=== PATIENT | female | born 1975 | race Caucasian/White ===

== ENCOUNTER 2017-07-05 16:23 | Emergency (ER) | payer MEDICARE, MEDICAID ==
[2017-07-05 16:38] VITALS: BP 152/93
[2017-07-05] MEDS ORDERED: Ondansetron 4 MG/2 ML SDV IVPUSH ONE (16:50)
[2017-07-05] MEDS ORDERED: diphenhydrAMINE 50 MG/ML SDV IVPUSH ONE (16:50)
[2017-07-05] MEDS ORDERED: Sodium Chloride 0.9% 10 ML Syringe FLUSH PRN (16:50)
[2017-07-05] MEDS ORDERED: Sodium Chloride 0.9% 1,000 ML IV SCH (17:00)
[2017-07-05] MEDS ORDERED: Ketorolac 30 MG/ML SDV IVPUSH SCH (17:00)
[2017-07-05] MEDS ORDERED: Acetaminophen 325 MG Tab PO STA (18:41)
--- NOTE | 2017-07-05 18:54 | EDM.PDOC ---
ED HPI GENERAL MEDICAL PROBLEM - General Chief Complaint: Headache Stated Complaint: MIGRAIN,THROWING UP Time Seen by Provider: 07/05/17 16:33 Source of Information: Reports: Patient, RN Notes Reviewed - History of Present Illness INITIAL COMMENTS - FREE TEXT/NARRATIVE: 32 year old female with onset of migraine type Walsh last evening, continues to day. Not able get reasonable relief with meds taken at home. Has had some nausea, vomiting, no fever, chills, cough or sore throat. hx of occas. Walsh's. Frontal Headache Pain Score (Numeric/FACES): 9 - Related Data Allergies Allergy/AdvReac Type Severity Reaction Status Date / Time meperidine Allergy Other Verified 07/05/17 16:38 metoclopramide Allergy Other Verified 07/05/17 16:38 Phenothiazines Allergy Other Verified 07/05/17 16:38 prochlorperazine Allergy Other Verified 07/05/17 16:38 Home Meds: Home Meds . 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 Denies: Abdominal Pain, Diarrhea Musculoskeletal: Denies: Neck Pain, Back Pain Neurological: Reports: Headache. Denies: Numbness, Tingling, Trouble Speaking, Difficulty Walking, Weakness ED EXAM, HEAD INJURY - Physical Exam Exam: See Below General Appearance: Alert, Mild Distress Head: Atraumatic. No: Facial Swelling Eyes: Bilateral Eye: PERRL Nose: Normal Inspection Throat/Mouth: Normal Inspection, Normal Oropharynx Neck: Full Range of Motion Respiratory: No Respiratory Distress, Lungs Clear, Normal Breath Sounds Cardiovascular: Regular Rate, Rhythm GI/Abdominal Exam: Non-Tender Extremities: Normal Inspection, Normal Range of Motion Neurologic: No Motor/Sensory Deficits, Normal Mood/Affect, Oriented x 3 Skin: Normal Color, Warm/Dry Course - Vital Signs Last Recorded V/S: Last Vital Signs Temp 96.2 F 07/05/17 16:31 Pulse 95 07/05/17 16:31 Resp 16 07/05/17 16:31 BP 152/93 H 07/05/17 16:31 Pulse Ox 96 07/05/17 16:31 - Orders/Labs/Meds Meds: Medications Discontinued Medications Generic Name Dose Route Start Last Admin Trade Name Gerri PRN Reason Stop Dose Admin Acetaminophen 975 mg 07/05/17 18:41 07/05/17 18:45 Tylenol PO 07/05/17 18:42 975 mg NOW STA Administration Diphenhydramine HCl 25 mg 07/05/17 16:50 07/05/17 17:09 Benadryl IVPUSH 07/05/17 16:51 25 mg ONETIME ONE Administration Sodium Chloride 1,000 mls @ 999 mls/hr 07/05/17 17:00 07/05/17 17:06 Normal Saline IV 999 mls/hr ONETIME RACHELL Administration Ketorolac Tromethamine 30 mg 07/05/17 17:00 07/05/17 17:07 Toradol IVPUSH 30 mg ONETIME RACHELL Administration Ondansetron HCl 4 mg 07/05/17 16:50 07/05/17 17:06 Zofran IVPUSH 07/05/17 16:51 4 mg ONETIME ONE Administration Sodium Chloride 10 ml 07/05/17 16:50 07/05/17 17:09 Saline Flush FLUSH 10 ml ASDIRECTED PRN Administration Keep Vein Open - Re-Assessments/Exams Free Text/Narrative Re-Assessment/Exam: 07/09/17 10:57 felt better after mult. meds given. Departure - Departure Time of Disposition: 18:52 Disposition: Home, Self-Care 01 Condition: Fair Clinical Impression: Migraine - Discharge Information Instructions: Migraine Headache, [id number] Referrals: Jareth Ewing MD [Primary Care Provider] - Forms: ED Department Discharge Additional Instructions: rest, clear liquids and bland diet as tolerated, you may take tylenol q 6 to 8 hr if needed for further Walsh, follow up clinic if Walsh not resolving as expected, return to ED if symptoms worsening in any way.
== END 2017-07-05 19:00 | disposition home or self-care (01) ==
LOC: JD.ED 16:23
DX: G43.909 Migraine, unspecified, not intractable, without status migrainosus (principal); Z88.8 Allergy status to other drugs, medicaments and biological substances
CPT/HCPCS: 96361; 96374; 96375; 99284; A9270; J1200; J1885; J2405; J7040; J7050

== ENCOUNTER 2017-08-09 18:02 | Emergency (ER) | payer MEDICARE, MEDICAID ==
[2017-08-09 18:18] VITALS: BP 151/91
[2017-08-09] MEDS ORDERED: Cyclobenzaprine 10 MG Tab PO ONE (19:28)
--- NOTE | 2017-08-09 19:34 | EDM.PDOC ---
ED HPI GENERAL MEDICAL PROBLEM - General Chief Complaint: Back Pain or Injury Stated Complaint: R SIDE RIB PAIN Time Seen by Provider: 08/09/17 18:50 Source of Information: Reports: Patient History Limitations: Reports: No Limitations - History of Present Illness INITIAL COMMENTS - FREE TEXT/NARRATIVE: Patient is a 41-year-old female who presents to the ED complaining of right lower back pain. Patient states yesterday she slipped in the ice and landed on her knees. Later that evening developed some discomfort to the right lower back. States the pain is constant and waxes and wanes in intensity. At times is sharp in nature. Pain is worsened with laying on the affected side decreased with sitting up and not laying on the affected side. She had taken some Tylenol with some relief. There is no numbness and tingling to extremities. She denies any saddle anesthesia. No incontinence to urine or stool. She has not been utilizing any ice or ibuprofen. She has no prior history of herniated disc or back surgeries. She denies being . She denies any abdominal pain, dysuria, blood in her urine, history kidney stones, or any additional complaints. 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 Worse with palpation and movement.), Muscle Pain, Muscle Stiffness. Denies: Leg Pain Neurological: Reports: No Symptoms ED EXAM,LOWER BACK PAIN/INJURY - Physical Exam Exam: See Below Exam Limited By: No Limitations General Appearance: Alert, WD/WN, No Apparent Distress Ears: Hearing Grossly Normal Nose: Normal Inspection Throat/Mouth: Normal Voice, No Airway Compromise Neck: Normal Inspection, Supple Respiratory/Chest: No Respiratory Distress, Lungs Clear, Normal Breath Sounds, No Accessory Muscle Use Cardiovascular: Normal Peripheral Pulses, Regular Rate, Rhythm GI/Abdominal: Normal Bowel Sounds, Soft, Non-Tender, No Organomegaly, No Distention Back Exam: Normal Inspection, Full Range of Motion, Other (Mild discomfort noted to the right low back with palpation. No ecchymosis, swelling, or wounds present. Minimal discomfort on palpation.). No: Paraspinal Tenderness, Vertebral Tenderness Neurological: Alert, Normal Mood/Affect, Normal Dorsiflexion, CN II-XII Intact, Normal Plantar Flexion, Normal Gait, No Motor/Sensory Deficits, Oriented x 3. No: Straight Leg Raise (L), Straight Leg Raise (R), Saddle Anesthesia, Difficulty Walking Psychiatric: Normal Affect, Normal Mood Skin Exam: Warm, Dry, Intact, Normal Color, No Rash Course - Vital Signs Last Recorded V/S: Last Vital Signs Temp 98.1 F 08/09/17 18:14 Pulse 98 08/09/17 18:14 Resp 16 08/09/17 18:14 BP 151/91 H 08/09/17 18:14 Pulse Ox 100 08/09/17 18:14 - Orders/Labs/Meds Meds: Medications Discontinued Medications Generic Name Dose Route Start Last Admin Trade Name Jermaineq PRN Reason Stop Dose Admin Cyclobenzaprine HCl 10 mg 08/09/17 19:28 08/09/17 19:34 Flexeril PO 08/09/17 19:29 10 mg ONETIME ONE Administration - Re-Assessments/Exams Free Text/Narrative Re-Assessment/Exam: On examination patient has some mild discomfort noted the right lower back soft tissue in origin. No bony abnormalities. No ecchymosis. No abrasions. No decreased range of motion noted. No focal neurological deficits concerning for for nerve impingement. She is moving freely with minimal discomfort. I ordered Flexeril 10 mg by mouth. We'll discharge patient home with instructions as documented. Departure - Departure Time of Disposition: 19:31 Disposition: Home, Self-Care 01 Condition: Good Clinical Impression: Right-sided low back pain without sciatica Qualifiers: Chronicity: acute Qualified Code(s): M54.5 - Low back pain - Discharge Information Prescriptions: Cyclobenzaprine [Flexeril] 10 mg PO TID PRN #12 tab PRN Reason: Muscle Spasm Instructions: Back Injury Prevention, [id number], Muscle Strain, [id number] , Back Pain, Adult, [id number] Referrals: Jareth Ewing MD [Primary Care Provider] - Forms: ED Department Discharge Additional Instructions: Take ibuprofen 600 mg every 6 hours and Tylenol 650 mg every 6 hours in alternating fashion. Apply warm compresses and ice to affected area 3 times a day in 30 minutes in duration, do not apply ice directly on the skin. Follow that with some gentle massage. Refrain from any activities that cause worsening pain. Follow-up with your primary care provider in the next week if symptoms persist. Return to the ED if he develops any new or worsening symptoms. Do not drive while taking the flexeril.
== END 2017-08-09 19:40 | disposition home or self-care (01) ==
LOC: JD.ED 18:02
DX: M54.5 Low back pain (principal); Z88.8 Allergy status to other drugs, medicaments and biological substances; Z77.22 Contact with and (suspected) exposure to environmental tobacco smoke (acute) (chronic)
CPT/HCPCS: 99283; A9270

== ENCOUNTER 2017-08-26 16:48 | Emergency (ER) | payer MEDICARE, MEDICAID ==
[2017-08-26] MEDS ORDERED: diphenhydrAMINE 50 MG/ML SDV IM ONE (17:47)
[2017-08-26] MEDS ORDERED: Ketorolac 60 MG/2 ML SDV IM ONE (17:47)
--- NOTE | 2017-08-26 17:52 | EDM.PDOC ---
ED HPI GENERAL MEDICAL PROBLEM - General Chief Complaint: Headache Stated Complaint: HEADACHE/VOMITED X 1 Time Seen by Provider: 08/26/17 17:37 Source of Information: Reports: Patient History Limitations: Reports: No Limitations - History of Present Illness INITIAL COMMENTS - FREE TEXT/NARRATIVE: Patient is a 41-year-old female presents ED complaining of bitemporal tension- like headache. Patient states the headache started approximately 1 hour ago and vomited 1. Headache was gradual with onset. Localized. She denies any vision changes, no sitting to extremities, weakness, recent head trauma, fever, or any additional complaints. States she's been under a lot more stress recently. Recently was at a for a patel on. Travel to [place] and back home or the past few days to visit her daughter. Patient states the headache was at its maximal pain when she was at the bank. This precipitated a vomiting episode 1. She presents ED with photophobia and no hyperacusis. She is sitting in a dimly lit room smiling and interacting with friends that are present. This is not described as the worst headache of her life. Headache Pain Score (Numeric/FACES): 10 - Related Data Allergies Allergy/AdvReac Type Severity Reaction Status Date / Time meperidine Allergy Other Verified 08/26/17 16:59 metoclopramide Allergy Other Verified 08/26/17 16:59 Phenothiazines Allergy Other Verified 08/26/17 16:59 prochlorperazine Allergy Other Verified 08/26/17 16:59 Home Meds: Home Meds Cyclobenzaprine [Flexeril] 10 mg PO TID PRN #12 tab 08/09/17 [Rx] FLUoxetine [PROzac] 10 mg PO DAILY 08/26/17 [History] Hydrochlorothiazide 25 ng PO DAILY 08/26/17 [History] Thyroid,Pork [[place] Thyroid] 90 mcg PO DAILY 08/26/17 [History] Past Medical History - Past Surgical History Neurological Surgical History: Reports: Other (See Below) Other Neurological Surgeries/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 - Physical Exam Exam: See Below Exam Limited By: No Limitations General Appearance: Alert, WD/WN, No Apparent Distress Eye Exam: Bilateral Eye: EOMI, PERRL Ears: Hearing Grossly Normal Nose: Normal Inspection Throat/Mouth: Normal Inspection, Normal Oropharynx, Normal Voice, No Airway Compromise Head Exam: Atraumatic, Normocephalic Neck: Normal Inspection, Supple, Non-Tender, Full Range of Motion Respiratory/Chest: No Respiratory Distress, Lungs Clear, Normal Breath Sounds, Chest Non-Tender Cardiovascular: Normal Peripheral Pulses, Regular Rate, Rhythm Neuro Exam (Abbreviated): Alert, Oriented, CN II-XII Intact, Normal Cognition, No Motor/Sensory Deficits, Other (No facial droop, no slurred speech, no uvular deviation, no weakness discrepancy is to the upper and lower extremities. Cerebellar function intact including: Finger-nose, and rapid alternating movements.) Back Exam: Normal Inspection Extremities: Normal Inspection, Non-Tender, No Pedal Edema Psychiatric: Normal Affect, Normal Mood Skin Exam: Warm, Dry, Intact, Normal Color Course - Vital Signs Last Recorded V/S: Last Vital Signs Temp 97.1 F 08/26/17 17:02 Pulse 100 08/26/17 17:02 Resp 18 08/26/17 17:02 BP 145/90 H 08/26/17 17:02 Pulse Ox 100 08/26/17 17:02 - Orders/Labs/Meds Meds: Medications Discontinued Medications Generic Name Dose Route Start Last Admin Trade Name Jermaineq PRN Reason Stop Dose Admin Diphenhydramine HCl 50 mg 08/26/17 17:47 08/26/17 18:00 Benadryl IM 08/26/17 17:48 50 mg ONETIME ONE Administration Ketorolac Tromethamine 60 mg 08/26/17 17:47 08/26/17 17:58 Toradol IM 08/26/17 17:48 60 mg ONETIME ONE Administration - Re-Assessments/Exams Free Text/Narrative Re-Assessment/Exam: Patient is having a tension-like headache. She's been under more stress recently. Ordered Toradol 60 mg IM and also Benadryl 50 mg IM. 08/26/17 19:06 reassessment, patients headache is a 2 out of 10. She is ready be discharged home. Discharge instructions as documented. Departure - Departure Time of Disposition: 19:06 Disposition: Home, Self-Care 01 Condition: Good Clinical Impression: Tension headache - Discharge Information Instructions: Tension Headache, [id number] Referrals: Jareth Ewing MD [Primary Care Provider] - Forms: ED Department Discharge Additional Instructions: Suggest going home to find a dark room to sleep with no distractions. Do not drive this evening since receiving a sedative medication. Push the fluids. Follow-up with PCP in the next week for reevaluation. Return to ED if you develop any new or worsening symptoms. If headache comes about again may take Tylenol and ibuprofen in alternating fashion for pain. May also utilize Benadryl 50 mg 1 for nausea and also allowing you to sleep hopefully aborting the headache.
[2017-08-26 19:06] VITALS: BP 129/90
== END 2017-08-26 19:22 | disposition home or self-care (01) ==
LOC: JD.ED 16:48
DX: G44.209 Tension-type headache, unspecified, not intractable (principal); Z88.8 Allergy status to other drugs, medicaments and biological substances; Z79.899 Other long term (current) drug therapy
CPT/HCPCS: 96372; 99284; J1200; J1885; 99283

== ENCOUNTER 2017-12-26 17:47 | Emergency (ER) | payer MEDICARE, MEDICAID ==
[2017-12-26 17:56] VITALS: BP 137/83
[2017-12-26] MEDS ORDERED: Ondansetron 4 MG/2 ML SDV IVPUSH ONE (19:35)
[2017-12-26] MEDS ORDERED: Sodium Chloride 0.9% 1,000 ML IV ONE (19:35)
[2017-12-26] MEDS ORDERED: Ibuprofen 800 MG Tab PO ONE (19:37)
--- NOTE | 2017-12-26 21:07 | EDM.PDOC ---
ED HPI GENERAL MEDICAL PROBLEM - General Chief Complaint: Syncope Stated Complaint: SYNCOPE Time Seen by Provider: 12/26/17 18:24 Source of Information: Reports: Patient History Limitations: Reports: No Limitations - History of Present Illness INITIAL COMMENTS - FREE TEXT/NARRATIVE: 42-year-old female past history of ventricular peritoneal shunt presenting with the chief complaint of dizziness headache nausea. Patient states she had gradual onset of nausea and dizziness over the course of the day today she had associated headache which is frontal but mild. She had no visual changes no focal neurologic deficits. 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 She does not follow with a neurosurgeon or neurologist for this. Patient states she has had headaches similar to this in the past. - Related Data Allergies Allergy/AdvReac Type Severity Reaction Status Date / Time meperidine Allergy Other Verified 12/26/17 17:56 metoclopramide Allergy Other Verified 12/26/17 17:56 Phenothiazines Allergy Other Verified 12/26/17 17:56 prochlorperazine Allergy Other Verified 12/26/17 17:56 Home Meds: Home Meds Cyclobenzaprine [Flexeril] 10 mg PO TID PRN #12 tab 08/09/17 [Rx] FLUoxetine [PROzac] 10 mg PO DAILY 08/26/17 [History] Thyroid,Pork [[place] Thyroid] 90 mcg PO DAILY 08/26/17 [History] hydroCHLOROthiazide [Hydrochlorothiazide] 25 ng PO DAILY 08/26/17 [History] Past Medical History Musculoskeletal History: Reports: Fracture Neurological History: Reports: None Psychiatric History: Reports: Anxiety, Depression Endocrine/Metabolic History: Reports: Hypothyroidism - Past Surgical History HEENT Surgical History: Reports: Myringotomy w Tube(s), Tonsillectomy Neurological Surgical History: Reports: Other (See Below) Other Neurological Surgeries/Procedures: JEWEL BEARING DRILLER shunt Social & Family History - Family History Family Medical History: Noncontributory - Tobacco Use Smoking Status *Q: Never Smoker Second Hand Smoke Exposure: No - Caffeine Use Caffeine Use: Reports: Soda - Recreational Drug Use Recreational Drug Use: No ED ROS GENERAL - Review of Systems Review Of Systems: See Below Constitutional: Reports: No Symptoms HEENT: Reports: No Symptoms Respiratory: Reports: No Symptoms Cardiovascular: Reports: No Symptoms Endocrine: Reports: No Symptoms GI/Abdominal: Reports: Nausea : Reports: No Symptoms Musculoskeletal: Reports: No Symptoms Skin: Reports: No Symptoms Neurological: Reports: Dizziness, Headache Psychiatric: Reports: No Symptoms ED EXAM, DIZZINESS - Physical Exam Exam: See Below Exam Limited By: No Limitations General Appearance: Alert, No Apparent Distress Eye Exam: Bilateral Eye: EOMI, PERRL, Other (Strabismus noted) Head Exam: Atraumatic, Normocephalic Neck: Normal Inspection, Supple, Non-Tender, Full Range of Motion Respiratory/Chest: No Respiratory Distress Cardiovascular: Normal Peripheral Pulses, Regular Rate, Rhythm GI/Abdominal: Normal Bowel Sounds, Soft, Non-Tender Neurological: Alert, Normal Mood/Affect, CN II-XII Intact Extremities: Normal Inspection, Normal Range of Motion, Non-Tender, Other ( syndactyly noted) Psychiatric: Normal Affect, Normal Mood Course - Vital Signs Last Recorded V/S: Last Vital Signs Temp 36.2 C 12/26/17 17:52 Pulse 83 12/26/17 17:52 Resp 18 12/26/17 17:52 BP 137/83 12/26/17 17:52 Pulse Ox 100 12/26/17 17:52 Orthostatic Blood Pressure [ 141/90 Standing] Orthostatic Blood Pressure [ 144/88 Sitting] Orthostatic Blood Pressure [ 137/83 Supine] - Orders/Labs/Meds Orders: Active Orders 24 hr Category Date Time Status EKG Documentation Completion [RC] STAT Care 12/26/17 19:25 Active Labs: Laboratory Tests 12/26/17 12/26/17 Range/Units 19:30 19:30 WBC 7.09 (3.98-10.04) K/mm3 RBC 4.57 (3.98-5.22) M/mm3 Hgb 13.6 (11.2-15.7) gm/L Hct 38.6 (34.1-44.9) % MCV 84.5 (79.4-94.8) fl MCH 29.8 (25.6-32.2) pg MCHC 35.2 (32.2-35.5) g/dl RDW Std Deviation 40.5 (36.4-46.3) fL Plt Count 207 (182-369) K/mm3 MPV 11.1 (9.4-12.3) fl Neut % (Auto) 71.0 (34.0-71.1) % Lymph % (Auto) 16.6 L (19.3-51.7) % [place] % (Auto) 6.2 (4.7-12.5) % Eos % (Auto) 5.5 (0.7-5.8) Baso % (Auto) 0.4 (0.1-1.2) % Neut # (Auto) 5.03 (1.56-6.13) K/mm3 Lymph # (Auto) 1.18 (1.18-3.74) K/mm3 [place] # (Auto) 0.44 H (0.24-0.36) K/mm3 Eos # (Auto) 0.39 H (0.04-0.36) K/mm3 Baso # (Auto) 0.03 (0.01-0.08) K/mm3 Sodium 140 (136-145) mEq/L Potassium 3.9 (3.5-5.1) mEq/L Chloride 105 (98-107) mEq/L Carbon Dioxide 27 (21-32) mEq/L Anion Gap 11.9 (5-15) BUN 17 (7-18) mg/dL Creatinine 0.8 (0.55-1.02) mg/dL Est Cr Clr Drug Dosing 73.93 mL/min Estimated GFR (MDRD) > 60 (>60) mL/min BUN/Creatinine Ratio 21.3 H (14-18) Glucose 112 H (74-106) mg/dL Calcium 8.7 (8.5-10.1) mg/dL Total Bilirubin 0.5 (0.2-1.0) mg/dL AST 28 (15-37) U/L ALT 55 (14-59) U/L Alkaline Phosphatase 152 H (46-116) U/L Total Protein 7.2 (6.4-8.2) g/dl Albumin 3.9 (3.4-5.0) g/dl Globulin 3.3 gm/dL Albumin/Globulin Ratio 1.2 (1-2) Meds: Medications Discontinued Medications Generic Name Dose Route Start Last Admin Trade Name Freq PRN Reason Stop Dose Admin Sodium Chloride 1,000 mls @ 999 mls/hr 12/26/17 19:35 12/26/17 19:46 Normal Saline IV 12/26/17 20:35 999 mls/hr ONETIME ONE Administration Ibuprofen 800 mg 12/26/17 19:37 12/26/17 19:46 Motrin PO 12/26/17 19:38 800 mg ONETIME ONE Administration Ondansetron HCl 4 mg 12/26/17 19:35 12/26/17 19:46 Zofran IVPUSH 12/26/17 19:36 4 mg ONETIME ONE Administration - Re-Assessments/Exams Free Text/Narrative Re-Assessment/Exam: 42-year-old female with a history of a JEWEL BEARING DRILLER shunt presenting with chief complaint of headache nausea and dizziness. Onset of the patient's symptoms have been gradual. On initial evaluation she has a completely intact and nonfocal neurologic exam. Her headache did improve before treatment was started. She headache with Tylenol and ibuprofen ED true nausea Zofran gave her a liter of IV fluid. She felt much improved afterwards. At this time I feel likelihood of sharp malfunction is highly unlikely. I don't feel that she needs a shunt series emergently. However the patient has been lost to follow-up. I impressed upon her the importance of maintaining a relationship with a neurosurgeon/ neurologist to manage her JEWEL BEARING DRILLER shunt over time. She nausea Z importance of this and says that she'll talk to her PCP for referral first thing next week. Over the weekend. The patient strict return precautions for any new or worsening headache, confusion, visual changes, focal neurologic deficits. All questions were answered. Departure - Departure Time of Disposition: 21:04 Disposition: Home, Self-Care 01 Clinical Impression: Dizziness - Discharge Information *PRESCRIPTION DRUG MONITORING PROGRAM REVIEWED*: No *COPY OF PRESCRIPTION DRUG MONITORING REPORT IN PATIENT STEPHEN: No Instructions: Dizziness, [id number] Referrals: Jareth Ewing MD [Primary Care Provider] - Forms: ED Department Discharge Additional Instructions: You were seen in the ED today for headache, dizziness, and nausea. At this time you do not appear to have a serious cause for your symptoms. It is safe to go home right now. It is very important that you find a specialist to follow your JEWEL BEARING DRILLER shunt. Your PCP should help you find one. If at any time you have a new or worsening headache, become confused, have severe nausea or vomiting with dizziness, please return to the ED immediately for re-evaluation. - My Orders Last 24 Hours: My Active Orders 12/26/17 19:25 EKG Documentation Completion [RC] STAT - Assessment/Plan Last 24 Hours: My Active Orders 12/26/17 19:25 EKG Documentation Completion [RC] STAT
== END 2017-12-26 21:15 | disposition home or self-care (01) ==
LOC: JD.ED 17:47
DX: R42 Dizziness and giddiness (principal); R51 Headache; R11.0 Nausea; Z88.8 Allergy status to other drugs, medicaments and biological substances; Z79.899 Other long term (current) drug therapy
CPT/HCPCS: 36415; 80053; 85025; 93005; 96361; 96374; 99284; A9270; J2405; J7040

== ENCOUNTER 2018-12-23 20:10 | Emergency (ER) | payer MEDICAID, MEDICARE ==
[2018-12-23 20:24] VITALS: BP 147/81
--- NOTE | 2018-12-23 20:30 | EDM.PDOC ---
ED HPI GENERAL MEDICAL PROBLEM - General Chief Complaint: General Stated Complaint: DIZZY/LIGHTHEADED Time Seen by Provider: 12/23/18 20:27 - History of Present Illness INITIAL COMMENTS - FREE TEXT/NARRATIVE: 43-year-old female presents emergency room with increasing dizziness. 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 A she has a hard time describing the dizziness and how it affects her however is getting worse. She's not any fevers or chills no significant headaches. Other than saying she' s dizzy she has a hard time quantifying the dizziness it seems at times the room is turning around her - Related Data Allergies Allergy/AdvReac Type Severity Reaction Status Date / Time meperidine [From Demerol] Allergy Delusions Verified 12/23/18 20:25 Home Meds: Home Meds Cyclobenzaprine [Flexeril] 10 mg PO TID PRN #12 tab 08/09/17 [Rx] FLUoxetine [PROzac] 10 mg PO DAILY 08/26/17 [History] Thyroid,Pork [[place] Thyroid] 90 mcg PO DAILY 08/26/17 [History] hydroCHLOROthiazide [Hydrochlorothiazide] 25 ng PO DAILY 08/26/17 [History] Past Medical History Cardiovascular History: Reports: Hypertension Musculoskeletal History: Reports: Fracture Neurological History: Reports: None Psychiatric History: Reports: Anxiety, Depression Endocrine/Metabolic History: Reports: Hypothyroidism - Past Surgical History HEENT Surgical History: Reports: Myringotomy w Tube(s), Tonsillectomy Neurological Surgical History: Reports: Other (See Below) Other Neurological Surgeries/Procedures: NEUROLOGY PHYSICIAN ASSISTANT shunt Social & Family History - Family History Family Medical History: Noncontributory - Tobacco Use Smoking Status *Q: Never Smoker - Caffeine Use Caffeine Use: Reports: Soda - Recreational Drug Use Recreational Drug Use: No ED ROS GENERAL - Review of Systems Review Of Systems: See Below Constitutional: Reports: No Symptoms. Denies: Fever, Chills HEENT: Reports: Other (The rooms turning around or not sure this is true vertigo ) Respiratory: Reports: No Symptoms Cardiovascular: Reports: No Symptoms Endocrine: Reports: No Symptoms GI/Abdominal: Reports: Constipation : Reports: No Symptoms Musculoskeletal: Reports: No Symptoms Skin: Reports: No Symptoms Neurological: Reports: Dizziness. Denies: Confusion, Seizure, Syncope Hematologic/Lymphatic: Reports: No Symptoms Immunologic: Reports: No Symptoms ED EXAM, GENERAL - Physical Exam Exam: See Below Exam Limited By: No Limitations General Appearance: Alert, No Apparent Distress Eye Exam: Bilateral Eye: Normal Inspection, PERRL Nose: Normal Inspection, Normal Mucosa, No Blood Throat/Mouth: Normal Inspection, Normal Lips, Normal Teeth Head: Atraumatic, Normocephalic Neck: Normal Inspection, Supple, Non-Tender, Full Range of Motion, Lymphadenopathy (L), Lymphadenopathy (R) Respiratory/Chest: No Respiratory Distress, Lungs Clear, Normal Breath Sounds Cardiovascular: Regular Rate, Rhythm, No Edema, No Murmur GI/Abdominal: Normal Bowel Sounds, Soft, Non-Tender Back Exam: Normal Inspection. No: CVA Tenderness (R), Muscle Spasm Extremities: Normal Inspection, No Pedal Edema Neurological: Alert, Oriented, CN II-XII Intact Psychiatric: Normal Affect Skin Exam: Warm, Dry, Intact Course - Vital Signs Last Recorded V/S: Last Vital Signs Temp 36.4 C 12/23/18 20:21 Pulse 86 12/23/18 20:21 Resp 18 12/23/18 20:21 BP 147/81 H 12/23/18 20:21 Pulse Ox 99 12/23/18 20:21 - Orders/Labs/Meds Orders: Active Orders 24 hr Category Date Time Status Head wo Cont [CT] Stat Exams 12/23/18 21:06 Taken Labs: Laboratory Tests 12/23/18 12/23/18 Range/Units 21:15 21:15 WBC 7.13 (3.98-10.04) K/mm3 RBC 4.29 (3.98-5.22) M/mm3 Hgb 12.9 (11.2-15.7) gm/L Hct 36.5 (34.1-44.9) % MCV 85.1 (79.4-94.8) fl MCH 30.1 (25.6-32.2) pg MCHC 35.3 (32.2-35.5) g/dl RDW Std Deviation 39.7 (36.4-46.3) fL Plt Count 213 D (182-369) K/mm3 MPV 10.1 (9.4-12.3) fl Neutrophils % (Manual) 71 H (40-60) % Band Neutrophils % 0 (0-10) % Lymphocytes % (Manual) 12 L (20-40) % Atypical Lymphs % 0 % Monocytes % (Manual) 9 (2-10) % Eosinophils % (Manual) 5 (0.7-5.8) % Basophils % (Manual) 3 H (0.1-1.2) Platelet Estimate Adequate Plt Morphology Comment Normal RBC Morph Comment Normal Sodium 139 (136-145) mEq/L Potassium 3.1 L (3.5-5.1) mEq/L Chloride 102 (98-107) mEq/L Carbon Dioxide 29 (21-32) mEq/L Anion Gap 11.1 (5-15) BUN 18 (7-18) mg/dL Creatinine 0.9 (0.55-1.02) mg/dL Est Cr Clr Drug Dosing 65.06 mL/min Estimated GFR (MDRD) > 60 (>60) mL/min BUN/Creatinine Ratio 20.0 H (14-18) Glucose 130 H (74-106) mg/dL Calcium 9.2 (8.5-10.1) mg/dL Total Bilirubin 0.4 (0.2-1.0) mg/dL AST 60 H (15-37) U/L ALT 127 H (14-59) U/L Alkaline Phosphatase 161 H (46-116) U/L C-Reactive Protein 2.0 H* (<1.0) mg/dL Total Protein 7.6 (6.4-8.2) g/dl Albumin 3.9 (3.4-5.0) g/dl Globulin 3.7 gm/dL Albumin/Globulin Ratio 1.1 (1-2) - Re-Assessments/Exams Free Text/Narrative Re-Assessment/Exam: 12/23/18 21:19 Early on the patient's case was discussed with Dr. Kwon neurosurgeon at [facility] in [place] in addition to the lab work he would like for me to go and get a head CT and they will see in the patient in follow-up in the clinic 12/23/18 22:[address] no acute problems patient will be discharged home to follow-up with Dr. Kwon at the [facility] Patient will follow up with Dr. Pederson for further workup for her dizziness. Departure - Departure Time of Disposition: 22:43 Disposition: Home, Self-Care 01 Clinical Impression: History of ventriculoperitoneal shunting, Dizziness - Discharge Information Referrals: Jareth Ewing MD [Primary Care Provider] - Forms: ED Department Discharge Additional Instructions: Current emergency room with any questions problems worsening symptoms. Follow up with Dr. Pederson for further evaluation of the dizziness follow-up with Dr. Kwon neurosurgeon and [facility] in [place] for follow-up on your shunt. - My Orders Last 24 Hours: My Active Orders 12/23/18 21:06 Head wo Cont [CT] Stat - Assessment/Plan Last 24 Hours: My Active Orders 12/23/18 21:06 Head wo Cont [CT] Stat
--- NOTE | 2018-12-24 08:23 | CT ---
Head CT Technique: Multiple axial sections through the brain were obtained. Intravenous contrast was not utilized. Comparison: Prior head CT study of 01/06/13. Findings: Mild asymmetry in size of the lateral ventricles are noted which is stable from previous exam. Shunt catheter is in place within the lateral ventricle. Minimal low density area noted within the left cerebellar hemisphere possibly due to old lacunar infarct although this may also be artifact. No other abnormal parenchymal densities are seen. No evidence of intracranial hemorrhage. No midline shift or mass effect is seen. Sclerotic appearing left mastoid sinus is seen which is a chronic finding. Visualized paranasal sinuses are clear. No acute calvarial abnormality is seen. Previous suboccipital craniotomy is noted. Impression: 1. Nonacute findings as noted above. Nothing acute is seen on noncontrast head CT study. Diagnostic code #2 I agree with preliminary report from [facility], finalized on 12/23/18, 11:20 PM Central Time
== END 2018-12-23 23:00 | disposition home or self-care (01) ==
LOC: JD.ED 20:10
DX: R42 Dizziness and giddiness (principal); Z98.2 Presence of cerebrospinal fluid drainage device; I10 Essential (primary) hypertension; E03.9 Hypothyroidism, unspecified; F41.9 Anxiety disorder, unspecified; F32.9 Major depressive disorder, single episode, unspecified; Z79.899 Other long term (current) drug therapy; Z88.5 Allergy status to narcotic agent
CPT/HCPCS: 36415; 70450; 70450-26; 80053; 85007; 85027; 86140; 99284-25

== ENCOUNTER 2019-02-12 20:20 | Emergency (ER) | payer MEDICAID, MEDICARE ==
[2019-02-12 20:32] VITALS: BP 143/104; PULSE 92
--- NOTE | 2019-02-12 21:22 | EDM.PDOC ---
ED HPI GENERAL MEDICAL PROBLEM - General Chief Complaint: Neurological Problem Stated Complaint: VOMITING/DIZZY Time Seen by Provider: 02/12/19 21:22 - History of Present Illness INITIAL COMMENTS - FREE TEXT/NARRATIVE: 43-year-old female presents emergency room with dizziness and vomiting. This patient gets like this on an intermittent basis but not usually this severe the last time she was this bad was about a month ago. 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 She is not sure what medications she's taking that she's taken a depression pill blood pressure pill and a muscle relaxant. She is not on any seizure medications. She does not have a headache associated with this she has not had any fevers or chills. She cannot identify what brought on the dizziness and then the vomiting. She's vomited 45 times this evening. The dizziness was slow in onset and gradually became worse over time it is not worsening at this time if anything is getting a little bit better. She denies fevers or chills no neck pain or rigidity Neck Pain Score (Numeric/FACES): 9 - Related Data Allergies Allergy/AdvReac Type Severity Reaction Status Date / Time meperidine [From Demerol] Allergy Delusions Verified 02/12/19 20:27 Home Meds: Home Meds Cyclobenzaprine [Flexeril] 10 mg PO TID PRN #12 tab 08/09/17 [Rx] FLUoxetine [PROzac] 10 mg PO DAILY 08/26/17 [History] Thyroid,Pork [[place] Thyroid] 90 mcg PO DAILY 08/26/17 [History] hydroCHLOROthiazide [Hydrochlorothiazide] 25 ng PO DAILY 08/26/17 [History] Ondansetron [Zofran ODT] 4 mg PO Q6H PRN #10 tab.dis 02/13/19 [Rx] Past Medical History Cardiovascular History: Reports: Hypertension Musculoskeletal History: Reports: Fracture Neurological History: Reports: None Psychiatric History: Reports: Anxiety, Depression Endocrine/Metabolic History: Reports: Hypothyroidism - Past Surgical History HEENT Surgical History: Reports: Myringotomy w Tube(s), Tonsillectomy Neurological Surgical History: Reports: Other (See Below) Other Neurological Surgeries/Procedures: PLANT P[employer]ER shunt Social & Family History - Family History Family Medical History: Noncontributory - Tobacco Use Smoking Status *Q: Never Smoker - Caffeine Use Caffeine Use: Reports: Soda - Recreational Drug Use Recreational Drug Use: No ED ROS GENERAL - Review of Systems Review Of Systems: See Below Constitutional: Reports: No Symptoms HEENT: Reports: No Symptoms Respiratory: Reports: No Symptoms Cardiovascular: Reports: No Symptoms GI/Abdominal: Reports: Nausea, Vomiting. Denies: Abdominal Pain : Reports: No Symptoms, Urinary Retention Skin: Reports: No Symptoms Neurological: Reports: Dizziness. Denies: Headache, Seizure Hematologic/Lymphatic: Reports: No Symptoms Immunologic: Reports: No Symptoms ED EXAM, GENERAL - Physical Exam Exam: See Below Exam Limited By: No Limitations General Appearance: Alert, No Apparent Distress Eye Exam: Bilateral Eye: Normal Inspection, PERRL Ears: Normal External Exam, Normal Canal, Hearing Grossly Normal, Normal TMs Nose: Normal Inspection, Normal Mucosa, No Blood Throat/Mouth: Normal Inspection, Normal Lips, Normal Teeth, Normal Gums, Normal Oropharynx, Normal Voice, No Airway Compromise Head: Atraumatic, Normocephalic Neck: Normal Inspection, Supple, Non-Tender, Full Range of Motion. No: Lymphadenopathy (L), Lymphadenopathy (R) GI/Abdominal: Normal Bowel Sounds, Soft, Non-Tender Back Exam: Normal Inspection. No: CVA Tenderness (L), CVA Tenderness (R) Neurological: Alert, Normal Cognition, Normal Reflexes Psychiatric: Normal Affect Skin Exam: Warm, Dry, Intact Course - Vital Signs Last Recorded V/S: Last Vital Signs Temp 35.9 C 02/12/19 20:28 Pulse 92 02/12/19 20:28 Resp 18 02/12/19 20:28 BP 143/104 H 02/12/19 20:28 Pulse Ox 99 02/12/19 20:28 - Orders/Labs/Meds Labs: Laboratory Tests 02/12/19 02/12/19 Range/Units 21:49 21:49 WBC 8.53 (3.98-10.04) K/mm3 RBC 4.45 (3.98-5.22) M/mm3 Hgb 13.5 (11.2-15.7) gm/dl Hct 37.8 (34.1-44.9) % MCV 84.9 (79.4-94.8) fl MCH 30.3 (25.6-32.2) pg MCHC 35.7 H (32.2-35.5) g/dl RDW Std Deviation 40.8 (36.4-46.3) fL Plt Count 242 (182-369) K/mm3 MPV 10.3 (9.4-12.3) fl Neutrophils % (Manual) 81 H (40-60) % Band Neutrophils % 0 (0-10) % Lymphocytes % (Manual) 12 L (20-40) % Atypical Lymphs % 0 % Monocytes % (Manual) 5 (2-10) % Eosinophils % (Manual) 1 (0.7-5.8) % Basophils % (Manual) 1 (0.1-1.2) Platelet Estimate Adequate Plt Morphology Comment Normal RBC Morph Comment Normal Sodium 139 (136-145) mEq/L Potassium 3.1 L (3.5-5.1) mEq/L Chloride 101 (98-107) mEq/L Carbon Dioxide 30 (21-32) mEq/L Anion Gap 11.1 (5-15) BUN 11 (7-18) mg/dL Creatinine 0.9 (0.55-1.02) mg/dL Est Cr Clr Drug Dosing 65.06 mL/min Estimated GFR (MDRD) > 60 (>60) mL/min BUN/Creatinine Ratio 12.2 L (14-18) Glucose 129 H (74-106) mg/dL Calcium 8.9 (8.5-10.1) mg/dL Total Bilirubin 0.5 (0.2-1.0) mg/dL AST 43 H (15-37) U/L ALT 85 H (14-59) U/L Alkaline Phosphatase 157 H (46-116) U/L Total Protein 7.8 (6.4-8.2) g/dl Albumin 4.1 (3.4-5.0) g/dl Globulin 3.7 gm/dL Albumin/Globulin Ratio 1.1 (1-2) Meds: Medications Discontinued Medications Generic Name Dose Route Start Last Admin Trade Name Freq PRN Reason Stop Dose Admin Lactated Ringer's 1,000 mls @ 999 mls/hr 02/12/19 21:31 02/12/19 21:57 Ringers, Lactated IV 02/12/19 22:31 999 mls/hr .BOLUS ONE Administration Meclizine HCl 12.5 mg 02/12/19 23:45 02/12/19 23:56 Antivert PO 02/12/19 23:46 12.5 mg ONETIME ONE Administration Ondansetron HCl 4 mg 02/12/19 21:31 02/12/19 21:57 Zofran IVPUSH 02/12/19 21:32 4 mg ONETIME ONE Administration - Re-Assessments/Exams Free Text/Narrative Re-Assessment/Exam: 02/13/19 00:56 Patient received a liter of LR 4 mg of Zofran and felt much better she still having some dizziness and mild nausea she was given 4 more milligrams of Zofran and 12.5 mg of meclizine she's doing much better at this time would like to go home. Departure - Departure Time of Disposition: 00:59 Disposition: Home, Self-Care 01 Clinical Impression: Vertigo, Nausea & vomiting - Discharge Information Prescriptions: Ondansetron [Zofran ODT] 4 mg PO Q6H PRN #10 tab.dis PRN Reason: Nausea/Vomiting Referrals: Jareth Ewing MD [Primary Care Provider] - Forms: ED Department Discharge Additional Instructions: Return to the emergency room with any questions problems worsening symptoms. Follow-up with your regular provider on Friday. Clear liquid diet for the next 24 hours then slowly advance as tolerated. Use the nausea medication as needed.
[2019-02-12] MEDS ORDERED: Lactated Ringers 1,000 ML IV ONE (21:31)
[2019-02-12] MEDS ORDERED: Ondansetron 4 MG/2 ML SDV IVPUSH ONE (21:31)
[2019-02-12] MEDS ORDERED: Meclizine 12.5 MG Tab PO ONE (23:45)
== END 2019-02-13 01:07 | disposition home or self-care (01) ==
LOC: JD.ED 20:20
DX: R42 Dizziness and giddiness (principal); R11.2 Nausea with vomiting, unspecified; I10 Essential (primary) hypertension; F41.9 Anxiety disorder, unspecified; F32.9 Major depressive disorder, single episode, unspecified; Z88.5 Allergy status to narcotic agent; Z79.899 Other long term (current) drug therapy
CPT/HCPCS: 36415; 80053; 85007; 85027; 96361; 96374; 99284; A9270; J2405; J7120

== ENCOUNTER 2019-02-14 12:13 | Emergency (ER) | payer MEDICARE ==
[2019-02-14 12:26] VITALS: BP 158/84; PULSE 100
[2019-02-14] MEDS ORDERED: Ondansetron 4 MG/2 ML SDV IVPUSH ONE ×2 (12:40→16:38)
[2019-02-14] MEDS ORDERED: methylPREDNISolone Sodium Succinate 125 MG/2 ML SDV IVPUSH ONE (12:40)
[2019-02-14] MEDS ORDERED: Sodium Chloride 0.9% 10 ML Syringe FLUSH PRN (12:40)
--- NOTE | 2019-02-14 12:44 | EDM.PDOC ---
ED HPI GENERAL MEDICAL PROBLEM - General Chief Complaint: Neurological Problem Stated Complaint: VOMITING AND DIZZY Time Seen by Provider: 02/14/19 12:25 Source of Information: Reports: Patient, RN Notes Reviewed - History of Present Illness INITIAL COMMENTS - FREE TEXT/NARRATIVE: 43 year old female comes in with dizziness and vomiting. She describes vertigo worse with motion, better to lie still or not move. She was treated here in the ed last [place] 2 days ago and felt better. Nausea and vertigo came back yesterday, worse today now with mild Walsh as well. No fever of chills. She does have hx of a cerebral shunt. No ear, throat or sinus discomfort. No chest pain , abd pain or diarrhea. Headache Pain Score (Numeric/FACES): 10 - Related Data Allergies Allergy/AdvReac Type Severity Reaction Status Date / Time meperidine [From Demerol] Allergy Delusions Verified 02/14/19 12:21 Home Meds: Home Meds Cyclobenzaprine [Flexeril] 10 mg PO TID PRN #12 tab 08/09/17 [Rx] FLUoxetine [PROzac] 10 mg PO DAILY 08/26/17 [History] Thyroid,Pork [[place] Thyroid] 90 mcg PO DAILY 08/26/17 [History] hydroCHLOROthiazide [Hydrochlorothiazide] 25 ng PO DAILY 08/26/17 [History] Ondansetron [Zofran ODT] 4 mg PO Q6H PRN #10 tab.dis 02/13/19 [Rx] Meclizine [Antivert] 12.5 mg PO BID #14 tab 02/14/19 [Rx] Past Medical History Cardiovascular History: Reports: Hypertension Musculoskeletal History: Reports: Fracture Neurological History: Reports: None Psychiatric History: Reports: Anxiety, Depression Endocrine/Metabolic History: Reports: Hypothyroidism - Past Surgical History HEENT Surgical History: Reports: Myringotomy w Tube(s), Tonsillectomy Neurological Surgical History: Reports: Other (See Below) 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 Denies: Ear Discharge, Ear Pain, Eye Pain, Rhinitis, Sinus Problem, Throat Pain, Vision Change Respiratory: Denies: Shortness of Breath Cardiovascular: Denies: Chest Pain GI/Abdominal: Reports: Nausea, Vomiting. Denies: Abdominal Pain, Diarrhea Musculoskeletal: Denies: Neck Pain, Back Pain Skin: Denies: Rash Neurological: Reports: Dizziness, Headache. Denies: Numbness, Tingling, Trouble Speaking, Weakness ED EXAM, DIZZINESS - Physical Exam Exam: See Below General Appearance: Alert, Moderate Distress, Other (vomiting at time of exam) Eye Exam: Bilateral Eye: Nystagmus Ears: Normal External Exam Nose: Normal Inspection Throat/Mouth: Normal Inspection, Normal Oropharynx Head Exam: Atraumatic. No: Facial Swelling Vertigo: reproducible Neck: Supple Respiratory/Chest: No Respiratory Distress, Lungs Clear, Normal Breath Sounds Cardiovascular: Regular Rate, Rhythm Neurological: Alert, No Motor/Sensory Deficits Skin Exam: Warm, Dry, Normal Color Course - Vital Signs Last Recorded V/S: Last Vital Signs Temp 98.0 F 02/14/19 12:21 Pulse 100 02/14/19 12:21 Resp 18 02/14/19 12:21 BP 158/84 H 02/14/19 12:21 Pulse Ox 97 02/14/19 12:21 - Orders/Labs/Meds Orders: Active Orders 24 hr Category Date Time Status Peripheral IV Care [RC] . DIRECTED Care 02/14/19 12:40 Active Peripheral IV Insertion Adult [OM.PC] Stat Oth 02/14/19 12:40 Ordered Labs: Laboratory Tests 02/14/19 02/14/19 02/14/19 Range/Units 12:45 12:45 12:45 WBC 6.81 (3.98-10.04) K/mm3 RBC 4.39 (3.98-5.22) M/mm3 Hgb 13.2 (11.2-15.7) gm/dl Hct 37.1 (34.1-44.9) % MCV 84.5 (79.4-94.8) fl MCH 30.1 (25.6-32.2) pg MCHC 35.6 H (32.2-35.5) g/dl RDW Std Deviation 40.6 (36.4-46.3) fL Plt Count 225 (182-369) K/mm3 MPV 11.0 (9.4-12.3) fl Neut % (Auto) 69.1 (34.0-71.1) % Lymph % (Auto) 16.9 L (19.3-51.7) % [place]ton % (Auto) 8.4 (4.7-12.5) % Eos % (Auto) 4.4 (0.7-5.8) Baso % (Auto) 0.9 (0.1-1.2) % Neut # (Auto) 4.71 (1.56-6.13) K/mm3 Lymph # (Auto) 1.15 L (1.18-3.74) K/mm3 [place]ton # (Auto) 0.57 H (0.24-0.36) K/mm3 Eos # (Auto) 0.30 (0.04-0.36) K/mm3 Baso # (Auto) 0.06 (0.01-0.08) K/mm3 ESR 31 H (0-20) mm/hr Sodium 138 (136-145) mEq/L Potassium 2.9 L (3.5-5.1) mEq/L Chloride 102 (98-107) mEq/L Carbon Dioxide 29 (21-32) mEq/L Anion Gap 9.9 (5-15) BUN 7 (7-18) mg/dL Creatinine 0.8 (0.55-1.02) mg/dL Est Cr Clr Drug Dosing 73.19 mL/min Estimated GFR (MDRD) > 60 (>60) mL/min BUN/Creatinine Ratio 8.8 L (14-18) Glucose 109 H (74-106) mg/dL Calcium 9.0 (8.5-10.1) mg/dL Total Bilirubin 0.5 (0.2-1.0) mg/dL AST 25 (15-37) U/L ALT 57 (14-59) U/L Alkaline Phosphatase 134 H (46-116) U/L Total Protein 7.5 (6.4-8.2) g/dl Albumin 3.9 (3.4-5.0) g/dl Globulin 3.6 gm/dL Albumin/Globulin Ratio 1.1 (1-2) Meds: Medications Discontinued Medications Generic Name Dose Route Start Last Admin Trade Name Freq PRN Reason Stop Dose Admin Diazepam 2 mg 02/14/19 12:40 02/14/19 13:12 Valium IVPUSH 02/14/19 12:41 2 mg ONETIME ONE Administration Sodium Chloride 1,000 mls @ 150 mls/hr 02/14/19 12:45 02/14/19 13:11 Normal Saline IV 150 mls/hr ASDIRECTED RACHELL Administration Potassium Chloride 10 meq/ 100 mls @ 50 mls/hr 02/14/19 14:24 02/14/19 14:31 Premix IV 02/14/19 16:23 50 mls/hr ASDIRECTED ONE Administration Meclizine HCl 12.5 mg 02/14/19 16:39 02/14/19 17:14 Antivert PO 02/14/19 16:40 12.5 mg ONETIME ONE Administration Methylprednisolone Sodium Succinate 125 mg 02/14/19 12:40 02/14/19 12:57 Solu-Medrol IVPUSH 02/14/19 12:41 125 mg ONETIME ONE Administration Ondansetron HCl 4 mg 02/14/19 12:40 02/14/19 12:53 Zofran IVPUSH 02/14/19 12:41 4 mg ONETIME ONE Administration Ondansetron HCl 4 mg 02/14/19 16:38 02/14/19 17:10 Zofran IVPUSH 02/14/19 16:39 4 mg ONETIME ONE Administration Ondansetron HCl 4 mg 02/14/19 16:44 02/14/19 17:16 Zofran Odt PO 02/14/19 16:45 4 mg ONETIME ONE Administration Sodium Chloride 10 ml 02/14/19 12:40 02/14/19 12:56 Saline Flush FLUSH 10 ml ASDIRECTED PRN Administration Keep Vein Open - Re-Assessments/Exams Free Text/Narrative Re-Assessment/Exam: 02/14/19 20:05 K+ came back low at 2.9 so did give 10 meq KCL IV. Labs otherwise relatively normal. She did end up feeling much better after IV fluid, IV zofran, solumedrol, valium, PO antivert. Walsh gone at time of discharge, discharge instr. as documented. Departure - Departure Time of Disposition: 16:41 Disposition: Home, Self-Care 01 Condition: Fair Clinical Impression: Vertigo, Hypokalemia Labyrinthitis Qualifiers: Laterality: unspecified laterality Qualified Code(s): H83.09 - Labyrinthitis, unspecified ear - Discharge Information Prescriptions: Meclizine [Antivert] 12.5 mg PO BID #14 tab Instructions: Vertigo, [id number], Labyrinthitis, [id number] Referrals: Jareth Ewing MD [Primary Care Provider] - Forms: ED Department Discharge Additional Instructions: rest, move slowly and carefully, zofran if needed for further severe nausea or vomiting. Antivert 12.5 mg twice daily for 3 days or until dizziness has completely resolved. See your regular medical provider in about 2 days for recheck, call tomorrow AM for appointment. - My Orders Last 24 Hours: My Active Orders 02/14/19 12:40 Peripheral IV Care [RC] . DIRECTED Peripheral IV Insertion Adult [OM.PC] Stat - Assessment/Plan Last 24 Hours: My Active Orders 02/14/19 12:40 Peripheral IV Care [RC] . DIRECTED Peripheral IV Insertion Adult [OM.PC] Stat
[2019-02-14] MEDS ORDERED: Sodium Chloride 0.9% 1,000 ML IV SCH (12:45)
[2019-02-14] MEDS ORDERED: Potassium Chloride 10 MEQ in Premix Bag 1 BAG IV ONE (14:24)
[2019-02-14] MEDS ORDERED: Meclizine 12.5 MG Tab PO ONE (16:39)
[2019-02-14] MEDS ORDERED: Ondansetron 4 MG Tab.DIS PO ONE (16:44)
== END 2019-02-14 17:25 | disposition home or self-care (01) ==
LOC: JD.ED 12:13
DX: H83.09 Labyrinthitis, unspecified ear (principal); E87.6 Hypokalemia; I10 Essential (primary) hypertension; F32.9 Major depressive disorder, single episode, unspecified; E03.9 Hypothyroidism, unspecified; Z88.5 Allergy status to narcotic agent; Z79.899 Other long term (current) drug therapy; Z79.890 Hormone replacement therapy
CPT/HCPCS: 36415; 80053; 85025; 85652; 96361; 96365; 96366; 96375; 96376; 99284; A9270; J2405; J2930; J3360; J3480; J7040; 99283

== ENCOUNTER 2020-02-09 16:22 | Emergency (ER) | payer MEDICARE ==
[2020-02-09 17:01] VITALS: BP 117/57; PULSE 84
--- NOTE | 2020-02-09 17:09 | EDM.PDOC ---
ED HPI GENERAL MEDICAL PROBLEM - General Chief Complaint: Respiratory Problem Stated Complaint: TESTED POSITIVE Time Seen by Provider: 02/09/20 16:54 Source of Information: Reports: Patient, RN Notes Reviewed - History of Present Illness INITIAL COMMENTS - FREE TEXT/NARRATIVE: 44 year old female comes to the ED with C/O cough, difficulty breathing. Pt is mildly handicapped. Hx is somewhat vague. I have also visited with her sister Mariah by phone who is her POA. Mariah states she tested positive about a week ago, believes she has now been ill for about 10 to 11 days. Pt has frequent continued cough, nonproductive. More short of breath yesterday and today. Has had chills. Possible low grade fever. Has a ventricular/peritoneal shunt. Lives with her fiance that helps provide daily care. - Related Data Allergies Allergy/AdvReac Type Severity Reaction Status Date / Time meperidine [From Demerol] Allergy Delusions Verified 02/14/19 12:21 Home Meds: Home Meds Cyclobenzaprine [Flexeril] 10 mg PO TID PRN #12 tab 08/09/17 [Rx] FLUoxetine [PROzac] 10 mg PO DAILY 08/26/17 [History] Thyroid,Pork [[place] Thyroid] 90 mcg PO DAILY 08/26/17 [History] hydroCHLOROthiazide [Hydrochlorothiazide] 25 ng PO DAILY 08/26/17 [History] Ondansetron [Zofran ODT] 4 mg PO Q6H PRN #10 tab.dis 02/13/19 [Rx] Meclizine [Antivert] 12.5 mg PO BID #14 tab 02/14/19 [Rx] Past Medical History Cardiovascular History: Reports: Hypertension Musculoskeletal History: Reports: Fracture Neurological History: Reports: None Psychiatric History: Reports: Anxiety, Depression Endocrine/Metabolic History: Reports: Hypothyroidism - Past Surgical History HEENT Surgical History: Reports: Myringotomy w Tube(s), Tonsillectomy Neurological Surgical History: Reports: Other (See Below) Other Neurological Surgeries/Procedures: MEDICAL SCHEDULER shunt Social & Family History - Family History Family Medical History: Noncontributory - Caffeine Use Caffeine Use: Reports: Soda ED ROS GENERAL - Review of Systems Review Of Systems: See Below Constitutional: Reports: Fever, Chills HEENT: Reports: No Symptoms Respiratory: Reports: Shortness of Breath, Cough Cardiovascular: Denies: Chest Pain Endocrine: Reports: Fatigue GI/Abdominal: Denies: Abdominal Pain, Nausea, Vomiting Musculoskeletal: Denies: Shoulder Pain, Arm Pain, Back Pain Skin: Reports: No Symptoms Neurological: Reports: Dizziness ED EXAM, GENERAL - Physical Exam Exam: See Below General Appearance: Alert, No Apparent Distress, Other (On 2 L NC at time of exam) Head: Atraumatic Neck: Supple Respiratory/Chest: No Respiratory Distress, Other (tachypnea at time of triage). No: Rhonchi, Wheezing Cardiovascular: Regular Rate, Rhythm GI/Abdominal: Non-Tender Extremities: Non-Tender. No: Pedal Edema, Leg Pain, Increased Warmth, Redness Neurological: Alert, No Motor/Sensory Deficits Skin Exam: Warm, Dry, Normal Color, No Rash Course - Vital Signs Last Recorded V/S: Last Vital Signs Temp 99.3 F 02/09/20 16:53 Pulse 84 02/09/20 16:53 Resp 26 H 02/09/20 16:53 BP 117/57 L 02/09/20 16:53 Pulse Ox 88 L 02/09/20 16:53 - Orders/Labs/Meds Orders: Active Orders 24 hr Category Date Time Status Consult to Home Care [Consult to Home Health] [CONS] Cons 02/09/20 18:30 Active Routine Chest 1V Frontal [CR] Stat Exams 02/09/20 17:07 Taken Labs: Laboratory Tests 02/09/20 02/09/20 02/09/20 Range/Units 17:20 17:20 17:20 WBC 7.13 (3.98-10.04) K/mm3 RBC 4.16 (3.98-5.22) M/mm3 Hgb 12.1 D (11.2-15.7) gm/dl Hct 35.7 (34.1-44.9) % MCV 85.8 (79.4-94.8) fl MCH 29.1 (25.6-32.2) pg MCHC 33.9 (32.2-35.5) g/dl RDW Std Deviation 40.2 (36.4-46.3) fL Plt Count 254 (182-369) K/mm3 MPV 10.4 (9.4-12.3) fl Neut % (Auto) 80.2 H (34.0-71.1) % Lymph % (Auto) 10.8 L (19.3-51.7) % [place] % (Auto) 8.4 (4.7-12.5) % Eos % (Auto) 0.4 L (0.7-5.8) Baso % (Auto) 0.1 (0.1-1.2) % Neut # (Auto) 5.71 (1.56-6.13) K/mm3 Lymph # (Auto) 0.77 L (1.18-3.74) K/mm3 [place] # (Auto) 0.60 H (0.24-0.36) K/mm3 Eos # (Auto) 0.03 L (0.04-0.36) K/mm3 Baso # (Auto) 0.01 (0.01-0.08) K/mm3 D-Dimer, Quantitative (0.19-0.50) mg/L Puncture Site ABG pH (7.35-7.45) ABG pCO2 (35.0-45.0) mmHg ABG pO2 (80.0-100.0) mmHg ABG HCO3 (22.0-26.0) meq/L ABG O2 Saturation (96.0-97.0) % ABG Base Excess (-2-2.0) [place] Test A-a Gradient mmHg O2 Delivery Device FiO2 (21.00-100.00) % Sodium 138 (136-145) mEq/L Potassium 3.2 L (3.5-5.1) mEq/L Chloride 102 (98-107) mEq/L Carbon Dioxide 24 (21-32) mEq/L Anion Gap 15.2 H (5-15) BUN 12 (7-18) mg/dL Creatinine 1.1 H (0.55-1.02) mg/dL Est Cr Clr Drug Dosing 52.69 mL/min Estimated GFR (MDRD) 54 (>60) mL/min BUN/Creatinine Ratio 10.9 L (14-18) Glucose 103 (74-106) mg/dL Calcium 8.5 (8.5-10.1) mg/dL Ferritin (8-252) ng/ml Total Bilirubin 1.0 (0.2-1.0) mg/dL AST 63 H (15-37) U/L ALT 84 H (14-59) U/L Alkaline Phosphatase 192 H (46-116) U/L Lactate Dehydrogenase 262 H (81-234) U/L C-Reactive Protein 12.8 H* (<1.0) mg/dL Total Protein 7.2 (6.4-8.2) g/dl Albumin 3.0 L (3.4-5.0) g/dl Globulin 4.2 gm/dL Albumin/Globulin Ratio 0.7 L (1-2) 02/09/20 02/09/20 02/09/20 Range/Units 17:20 17:20 18:18 WBC (3.98-10.04) K/mm3 RBC (3.98-5.22) M/mm3 Hgb (11.2-15.7) gm/dl Hct (34.1-44.9) % MCV (79.4-94.8) fl MCH (25.6-32.2) pg MCHC (32.2-35.5) g/dl RDW Std Deviation (36.4-46.3) fL Plt Count (182-369) K/mm3 MPV (9.4-12.3) fl Neut % (Auto) (34.0-71.1) % Lymph % (Auto) (19.3-51.7) % [place] % (Auto) (4.7-12.5) % Eos % (Auto) (0.7-5.8) Baso % (Auto) (0.1-1.2) % Neut # (Auto) (1.56-6.13) K/mm3 Lymph # (Auto) (1.18-3.74) K/mm3 [place] # (Auto) (0.24-0.36) K/mm3 Eos # (Auto) (0.04-0.36) K/mm3 Baso # (Auto) (0.01-0.08) K/mm3 D-Dimer, Quantitative 0.25 (0.19-0.50) mg/L Puncture Site Lt radial ABG pH 7.44 (7.35-7.45) ABG pCO2 32.0 L (35.0-45.0) mmHg ABG pO2 57.0 L (80.0-100.0) mmHg ABG HCO3 21.3 L (22.0-26.0) meq/L ABG O2 Saturation 89.8 L (96.0-97.0) % ABG Base Excess -1.7 (-2-2.0) [place] Test Positive A-a Gradient 52 mmHg O2 Delivery Device Room air FiO2 21.00 (21.00-100.00) % Sodium (136-145) mEq/L Potassium (3.5-5.1) mEq/L Chloride (98-107) mEq/L Carbon Dioxide (21-32) mEq/L Anion Gap (5-15) BUN (7-18) mg/dL Creatinine (0.55-1.02) mg/dL Est Cr Clr Drug Dosing mL/min Estimated GFR (MDRD) (>60) mL/min BUN/Creatinine Ratio (14-18) Glucose (74-106) mg/dL Calcium (8.5-10.1) mg/dL Ferritin 341 H (8-252) ng/ml Total Bilirubin (0.2-1.0) mg/dL AST (15-37) U/L ALT (14-59) U/L Alkaline Phosphatase (46-116) U/L Lactate Dehydrogenase (81-234) U/L C-Reactive Protein (<1.0) mg/dL Total Protein (6.4-8.2) g/dl Albumin (3.4-5.0) g/dl Globulin gm/dL Albumin/Globulin Ratio (1-2) Meds: Medications Discontinued Medications Generic Name Dose Route Start Last Admin Trade Name Freq PRN Reason Stop Dose Admin Dexamethasone 6 mg 02/09/20 19:17 Dexamethasone IV 02/09/20 19:18 ONETIME ONE Dexamethasone 6 mg 02/09/20 19:20 02/09/20 19:56 Dexamethasone IM 02/09/20 19:21 6 mg ONETIME ONE Administration - Re-Assessments/Exams Free Text/Narrative Re-Assessment/Exam: 02/09/20 20:32 sats 88 per cent at time of triage so place on O2 2 L NC. CXR shows bilat infiltrates. Labs as documented. WBC, D Dimer nl. CRP around 12. I visited with Mariah at length, her sister that lives in [place], POA for Evette. She feels Evette would do better at home on oxygen than in a hospital, especially to be transferred somewhere like [place]. We are on diversion for admission as well as both [facility]. Evette would also rather be at home on oxygen. Discharge instr. as documented. I did write for a home health eval. Departure - Departure Time of Disposition: 19:12 Disposition: Home, Self-Care 01 Condition: Fair Clinical Impression: Pneumonia due to COVID-19 virus, Hypoxia - Discharge Information Instructions: COVID-19 Referrals: PCP,None [Primary Care Provider] - Forms: ED Department Discharge Additional Instructions: Home oxygen at 2 Liters Nasal canula. Rest. An order has been written for Home Health to come do a home evaluation, hopefully tomorrow and than 2 to 3 times a week until you are well. Return to ED at any time if your breathing becomes very difficult or otherwise as needed. Sepsis Event Note (ED) - Evaluation Sepsis Screening Result: Possible Sepsis Risk - Focused Exam Vital Signs: Vital Signs Temp Pulse Resp BP Pulse Ox 02/09/20 16:53 99.3 F 84 26 H 117/57 L 88 L - My Orders Last 24 Hours: My Active Orders 02/09/20 17:07 Chest 1V Frontal [CR] Stat 02/09/20 18:30 Consult to Home Care [Consult to Home Health] [CONS] Routine - Assessment/Plan Last 24 Hours: My Active Orders 02/09/20 17:07 Chest 1V Frontal [CR] Stat 02/09/20 18:30 Consult to Home Care [Consult to Home Health] [CONS] Routine
[2020-02-09] MEDS ORDERED: Dexamethasone 4 MG/ML 5 ML MDV IV ONE (19:17)
[2020-02-09] MEDS ORDERED: Dexamethasone 4 MG/ML 5 ML MDV IM ONE (19:20)
== END 2020-02-09 20:30 | disposition home or self-care (01) ==
LOC: JD.ED 16:22
DX: U07.1 COVID-19 (principal); J12.89 Other viral pneumonia; R09.02 Hypoxemia; F41.9 Anxiety disorder, unspecified; F32.9 Major depressive disorder, single episode, unspecified; E03.9 Hypothyroidism, unspecified
CPT/HCPCS: 36415; 36600; 71045; 80053; 82728; 82803; 83615; 85025; 85379; 86140; 96372; 99285; J1100; 99283

== ENCOUNTER 2021-02-08 08:13 | Emergency (ER) | payer MEDICARE, MEDICAID ==
[2021-02-08] MEDS ORDERED: Ondansetron 4 MG Tab.DIS PO ONE (08:54)
[2021-02-08] MEDS ORDERED: Acetaminophen/Butalbital/Caffeine 325-50-40 MG Tab PO ONE (08:55)
--- NOTE | 2021-02-08 09:10 | EDM.PDOC ---
ED HPI GENERAL MEDICAL PROBLEM - General Chief Complaint: Gastrointestinal Problem Stated Complaint: vomiting Time Seen by Provider: 02/08/21 08:40 Source of Information: Reports: Patient History Limitations: Reports: No Limitations - History of Present Illness INITIAL COMMENTS - FREE TEXT/NARRATIVE: 45-year-old female presents the emergency department today with complaints of v omiting and a headache. Patient states she was seen in [place] yesterday for a CT scan of her right shoulder and they did inject her spine with dye. She states she is unable to have an MRI because she has a shunt in her brain. She states that initially when she left the hospital she felt fine however on the way home developed a severe headache as well as nausea and vomiting. Patient states that she vomited numerous times throughout the night and was unable to really get much of any sleep. She denies any other symptoms. She denies any recent fever, chills, diarrhea, abdominal pain, cough or shortness of breath. She denies any urinary symptoms. Headache Pain Score (Numeric/FACES): 10 - Related Data Allergies Allergy/AdvReac Type Severity Reaction Status Date / Time meperidine [From Demerol] Allergy Delusions Verified 02/08/21 08:44 Home Meds: Home Meds Cyclobenzaprine [Flexeril] 10 mg PO TID PRN #12 tab 08/09/17 [Rx] FLUoxetine [PROzac] 10 mg PO DAILY 08/26/17 [History] Thyroid,Pork [[place] Thyroid] 90 mcg PO DAILY 08/26/17 [History] hydroCHLOROthiazide [Hydrochlorothiazide] 25 ng PO DAILY 08/26/17 [History] Ondansetron [Zofran ODT] 4 mg PO Q6H PRN #10 tab.dis 02/13/19 [Rx] Meclizine [Antivert] 12.5 mg PO BID #14 tab 02/14/19 [Rx] Ondansetron [Zofran ODT] 4 mg PO Q6H PRN #10 tab.dis 02/08/21 [Rx] Past Medical History Cardiovascular History: Reports: Hypertension Respiratory History: Reports: Pneumonia, Recurrent, Other (See Below) Other Respiratory History: COVID Genitourinary History: Reports: UTI, Recurrent 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 - Physical Exam Exam: See Below Exam Limited By: No Limitations General Appearance: Alert, WD/WN, No Apparent Distress Ears: Normal External Exam, Hearing Grossly Normal Nose: Normal Inspection, Normal Mucosa Throat/Mouth: Normal Inspection, Normal Lips, Normal Voice, No Airway Compromise Neck: Normal Inspection, Supple, Non-Tender, Full Range of Motion Respiratory/Chest: No Respiratory Distress, Lungs Clear, Normal Breath Sounds, No Accessory Muscle Use, Chest Non-Tender Cardiovascular: Normal Peripheral Pulses, Regular Rate, Rhythm GI/Abdominal: Normal Bowel Sounds, No Distention (Female) Exam: Deferred Rectal (Female) Exam: Deferred Neuro Exam (Abbreviated): Alert, Oriented, Normal Cognition Back Exam: Normal Inspection Extremities: Normal Inspection Psychiatric: Normal Affect, Normal Mood Skin Exam: Warm, Dry, Intact, Normal Color, No Rash Course - Vital Signs Text/Narrative:: As stated above, patient presents with complaints of headache and vomiting status post CT scan dye injected into her spine yesterday to undergo a test in [place]. Time of my exam, patient is hemodynamically stable. She is not actively vomiting. Patient does have a bandage in place over her lumbar spine. The skin beneath the bandage is observed and there is no areas of redness or signs and symptoms of infection. Physical exam is otherwise unremarkable. Suspect patient likely has a post dural puncture headache. We will give her Zofran 4 mg ODT. Nursing staff has been notified that 30 minutes after the Zofran we will give her 1 Fioricet to see if we can help her headache. Last Recorded V/S: Last Vital Signs Temp 96.8 F L 10/14/21 08:35 Pulse 72 02/08/21 08:35 Resp 16 02/08/21 08:35 BP 136/92 H 02/08/21 08:35 Pulse Ox 100 02/08/21 08:35 - Orders/Labs/Meds Meds: Medications Discontinued Medications Generic Name Dose Route Start Last Admin Trade Name Gerri PRN Reason Stop Dose Admin Acetaminophen/Butalbital/Caffeine 1 tab 02/08/21 08:55 02/08/21 10:24 Acetaminophen/Butalbital/Caffeine 325-50-40 Mg Tab PO 02/08/21 08:56 1 tab ONETIME ONE Administration Sodium Chloride 1,000 mls @ 500 mls/hr 02/08/21 12:25 02/08/21 13:15 Normal Saline IV 02/08/21 14:24 500 mls/hr ONETIME ONE Administration Ondansetron HCl 4 mg 02/08/21 08:54 02/08/21 09:20 Ondansetron 4 Mg Tab.Dis PO 02/08/21 08:55 4 mg ONETIME ONE Administration - Re-Assessments/Exams Free Text/Narrative Re-Assessment/Exam: 02/08/21 11:45 Patient states that her nausea has resolved however headache has not changed. Her is going to get her paperwork that she received from [facility] yesterday so I can phone the provider who performed the procedure. 02/08/21 12:14 I did speak to Lucas Dorman, interventional radiologist at [facility] in [place] who performed [place] myelogram cervical on the patient yesterday. Discussed her case with him and he states he recommends the patient receive 500 mL of NS and then receive NS at 150 mL's per hour and to be monitored in the emergency department until about 6 PM this evening. He states that the procedure he completed on the patient yesterday had no complications. He states that the nursing staff did discuss with the patient that she was supposed to go home and lay down and rest for the remainder of the day however patient and her significant other were very nonchalant regarding the procedure that happened and so Dr. Dorman questions whether or not the patient was compliant with discharge instructions. 02/08/21 16:41 Patient states that her headache is significantly better. We will have nursing staff ambulate her. 02/08/21 17:00 Nursing staff ambulated patient in the hallway. She denied complaints of increasing headache discomfort. She will be discharged home. Departure - Departure Time of Disposition: 17:01 Disposition: Home, Self-Care 01 Condition: Good Clinical Impression: Headache, post-lumbar puncture - Discharge Information Prescriptions: Ondansetron [Zofran ODT] 4 mg PO Q6H PRN #10 tab.dis PRN Reason: Nausea/Vomiting Instructions: Spinal Headache Referrals: Jareth Ewing MD [Primary Care Provider] - Forms: ED Department Discharge Additional Instructions: You were seen in the emergency department today after complaints of severe headache and nausea and vomiting after having a procedure completed yesterday at [facility] in [place]. Consulted the provider that performed your procedure and he recommended that we give you IV fluids. You are also given nausea medication called Mahogany while in the emergency department and both of th olive medications did help to abort your nausea and did significantly decrease her headache discomfort. You will need to go home and rest. You will need to lay flat as much as possible. Recommend that you drink plenty of decaffeinated fluids. I have sent a prescription for the nausea medication, called Zofran, to clinic pharmacy. You may take 1 tablet this medication every 6 hours as needed for nausea and vomiting. Be sure to wait at least 30 minutes after taking the medication prior to eating or drinking. Should your condition worsen or change, do not hesitate returning to the emergency department Sepsis Event Note (ED) - Evaluation Sepsis Screening Result: No Definite Risk - Focused Exam Vital Signs: Vital Signs Temp Pulse Resp BP Pulse Ox 02/08/21 08:35 96.8 F L 72 16 136/92 H 100
[2021-02-08] MEDS ORDERED: Sodium Chloride 0.9% 1,000 ML IV ONE (12:25)
[2021-02-08 17:36] VITALS: BP 117/69; PULSE 76
== END 2021-02-08 17:25 | disposition home or self-care (01) ==
LOC: JD.ED 08:13
DX: G97.1 Other reaction to spinal and lumbar puncture (principal); R51.0 Headache with orthostatic component, not elsewhere classified; I10 Essential (primary) hypertension; E03.9 Hypothyroidism, unspecified; Z86.16 Personal history of COVID-19; Z79.899 Other long term (current) drug therapy
CPT/HCPCS: 99283; A9270-GY; J7030

== ENCOUNTER 2022-01-27 14:46 | Emergency (ER) | payer MEDICARE, MEDICAID ==
[2022-01-27 15:09] VITALS: BP 113/63; PULSE 81
[2022-01-27 16:20] LABS: CORONAVIRUS COVID-19 NAA NEGATIVE (NEGATIVE)
== END 2022-01-27 19:31 | disposition home or self-care (01) ==
LOC: JD.ED 14:46
DX: R42 Dizziness and giddiness (principal); H55.89 Other irregular eye movements; I10 Essential (primary) hypertension; Z88.8 Allergy status to other drugs, medicaments and biological substances; Z79.899 Other long term (current) drug therapy; Z86.16 Personal history of COVID-19; Z20.822 Contact with and (suspected) exposure to COVID-19; Z98.2 Presence of cerebrospinal fluid drainage device
CPT/HCPCS: 0240U; 36415; 70450; 71045; 80053; 80306; 81003; 81025; 83735; 84443; 84484; 85007; 85027; 85610; 85730; 87040; 93005; 99284

== ENCOUNTER 2023-03-22 08:01 | Emergency (ER) | payer MEDICARE, MEDICAID ==
[2023-03-22 08:15] VITALS: PULSE 71
[2023-03-22] MEDS ORDERED: Ondansetron 4 MG Tab.DIS PO ONE (08:49)
[2023-03-22 09:14] LABS: BASOPHILS ABSOLUTE AUTO 0.1 K/mm3 (0.0-0.2); EOSINOPHILS ABSOLUTE AUTO 0.2 K/mm3 (0.0-0.4); EOSINOPHILS PERCENT AUTO 2.7 % (0.0-6.0); HEMATOCRIT 41.4 % (37.0-47.0); HEMOGLOBIN 14.2 gm/dl (12.0-16.0); IMMATURE GRAN ABSOLUTE AUTO 0.03 K/mm3 (0.00-0.05); IMMATURE GRAN PERCENT AUTO 0.5 % (0.0-0.4); LYMPHOCYTES ABSOLUTE AUTO 0.9 K/mm3 (1.0-4.8); LYMPHOCYTES PERCENT AUTO 13.9 % (24.0-44.0); MEAN CORPUSCULAR HEMOGLOBIN 31.1 pg (28.0-32.0); MEAN CORPUSCULAR HGB CONC 34.3 g/dl (32.0-36.0); MEAN CORPUSCULAR VOLUME 90.8 fl (83.0-99.0); MEAN PLATELET VOLUME 10.1 fl (9.4-12.3); MONOCYTES ABSOLUTE AUTO 0.4 K/mm3 (0.0-0.8); MONOCYTES PERCENT AUTO 6.3 % (0.0-8.0); NEUTROPHILS ABSOLUTE AUTO 4.8 K/mm3 (1.8-7.7); NEUTROPHILS PERCENT AUTO 75.6 % (41.0-71.0); PLATELET COUNT,PLT 165 K/mm3 (150-400); RED BLOOD CELL COUNT 4.56 M/mm3 (4.10-5.30); WHITE BLOOD CELL COUNT,WBC 6.31 K/mm3 (3.9-11.3)
[2023-03-22 09:24] LABS: APPEARANCE,URINE CLEAR (Clear); BILIRUBIN,URINE NEGATIVE (Negative); COLOR,URINE LIGHT YELLOW (Yellow); GLUCOSE,URINE NEGATIVE (Negative); KETONES,URINE NEGATIVE (Negative); LEUKOCYTE ESTERASE,URINE NEGATIVE (Negative); NITRITE,URINE NEGATIVE (Negative); OCCULT BLOOD,URINE NEGATIVE (Negative); PH,URINE 6.5 (5.0-8.0); PROTEIN,URINE NEGATIVE (Negative); UROBILINOGEN,URINE 0.2 (0.2-1.0)
[2023-03-22 09:40] LABS: A/G RATIO 1.1 (1-2); ALBUMIN 4.1 g/dl (3.4-5.0); ANION GAP 12.8 (5-15); BILIRUBIN TOTAL 0.5 mg/dL (0.2-1.0); BUN/CREATININE RATIO 9.1 (14-18); CALCIUM 9.9 mg/dL (8.5-10.1); CREATININE 1.1 mg/dL (0.55-1.02); EST CRCL DRUG DOSING (CG) 51.08 mL/min; POTASSIUM,K 4.8 mEq/L (3.5-5.1); PROTEIN TOTAL,TP 7.7 g/dl (6.4-8.2)
[2023-03-22 09:50] LABS: CORONAVIRUS COVID-19 NAA NEGATIVE (NEGATIVE); INFLUENZA A NAA NEGATIVE (NEGATIVE)
[2023-03-22 12:00] VITALS: BP 140/82
== END 2023-03-22 11:55 | disposition home or self-care (01) ==
LOC: JD.ED 08:01
DX: K59.00 Constipation, unspecified (principal); E03.9 Hypothyroidism, unspecified; Z20.822 Contact with and (suspected) exposure to COVID-19; Z79.899 Other long term (current) drug therapy; Z86.16 Personal history of COVID-19; Z88.5 Allergy status to narcotic agent
CPT/HCPCS: 0240U; 36415; 80053; 81003; 85025; 99283; 99284; A9270-GY

== ENCOUNTER 2023-03-25 09:25 | Emergency (ER) | payer MEDICARE, MEDICAID ==
[2023-03-25] MEDS ORDERED: Sodium Chloride 0.9% 1,000 ML IV ONE (10:11)
[2023-03-25] MEDS ORDERED: Sodium Chloride 0.9% 10 ML Syringe FLUSH PRN (10:11)
[2023-03-25 10:32] LABS: APPEARANCE,URINE CLEAR (Clear); BILIRUBIN,URINE NEGATIVE (Negative); COLOR,URINE LIGHT YELLOW (Yellow); GLUCOSE,URINE NEGATIVE (Negative); KETONES,URINE NEGATIVE (Negative); LEUKOCYTE ESTERASE,URINE NEGATIVE (Negative); NITRITE,URINE NEGATIVE (Negative); OCCULT BLOOD,URINE NEGATIVE (Negative); PROTEIN,URINE NEGATIVE (Negative); UROBILINOGEN,URINE 0.2 (0.2-1.0)
[2023-03-25 11:06] LABS: CORONAVIRUS COVID-19 NAA NEGATIVE (NEGATIVE); INFLUENZA A NAA NEGATIVE (NEGATIVE); RESPIRATORY SYNCYTIAL VIR NAA NEGATIVE (NEGATIVE)
[2023-03-25 11:33] LABS: C-REACTIVE PROTEIN <0.2 mg/dL (<1.0); SODIUM,NA 140 mEq/L (136-145)
[2023-03-25 11:36] LABS: BASOPHILS ABSOLUTE AUTO 0.1 K/mm3 (0.0-0.2); BASOPHILS PERCENT AUTO 0.9 % (0.0-1.0); EOSINOPHILS ABSOLUTE AUTO 0.1 K/mm3 (0.0-0.4); EOSINOPHILS PERCENT AUTO 1.7 % (0.0-6.0); HEMATOCRIT 39.3 % (37.0-47.0); HEMOGLOBIN 13.4 gm/dl (12.0-16.0); IMMATURE GRAN ABSOLUTE AUTO 0.02 K/mm3 (0.00-0.05); IMMATURE GRAN PERCENT AUTO 0.3 % (0.0-0.4); LYMPHOCYTES ABSOLUTE AUTO 1.1 K/mm3 (1.0-4.8); MEAN CORPUSCULAR HEMOGLOBIN 30.9 pg (28.0-32.0); MEAN CORPUSCULAR HGB CONC 34.1 g/dl (32.0-36.0); MEAN CORPUSCULAR VOLUME 90.6 fl (83.0-99.0); MEAN PLATELET VOLUME 10.5 fl (9.4-12.3); MONOCYTES ABSOLUTE AUTO 0.4 K/mm3 (0.0-0.8); MONOCYTES PERCENT AUTO 6.8 % (0.0-8.0); NEUTROPHILS ABSOLUTE AUTO 4.3 K/mm3 (1.8-7.7); NEUTROPHILS PERCENT AUTO 72.3 % (41.0-71.0); PLATELET COUNT,PLT 155 K/mm3 (150-400); RED BLOOD CELL COUNT 4.34 M/mm3 (4.10-5.30); WHITE BLOOD CELL COUNT,WBC 5.88 K/mm3 (3.9-11.3)
[2023-03-25 11:58] LABS: A/G RATIO 1.2 (1-2); ALANINE AMINOTRANSFERASE,ALT 35 U/L (14-59); ALBUMIN 3.7 g/dl (3.4-5.0); ALKALINE PHOSPHATASE 135 U/L (46-116); ANION GAP 13.3 (5-15); ASPARTATE AMNIOTRANSFERASE,AST 19 U/L (15-37); BILIRUBIN TOTAL 0.3 mg/dL (0.2-1.0); BLOOD UREA NITROGEN,BUN 16 mg/dL (7-18); CARBON DIOXIDE,CO2 26 mEq/L (21-32); CHLORIDE,CL 105 mEq/L (98-107); EST CRCL DRUG DOSING (CG) 56.19 mL/min; ESTIMATED GFR 71 mL/min (>60); GLUCOSE RANDOM 104 mg/dL (70-99); POTASSIUM,K 4.3 mEq/L (3.5-5.1); PROTEIN TOTAL,TP 6.9 g/dl (6.4-8.2)
[2023-03-25 13:09] VITALS: BP 130/89; PULSE 67
== END 2023-03-25 13:05 | disposition home or self-care (01) ==
LOC: JD.ED 09:25
DX: B34.9 Viral infection, unspecified (principal); E86.0 Dehydration; I10 Essential (primary) hypertension; E03.9 Hypothyroidism, unspecified; Z86.16 Personal history of COVID-19; Z20.822 Contact with and (suspected) exposure to COVID-19; Z79.899 Other long term (current) drug therapy; Z88.5 Allergy status to narcotic agent
CPT/HCPCS: 0241U; 36415; 80053; 81003; 85025; 86140; 96360; 99284; J3490; J7030; 99283

== ENCOUNTER 2023-09-29 10:22 | Emergency (ER) | payer MEDICARE, MEDICAID ==
[2023-09-29 11:00] LABS: BASOPHILS ABSOLUTE AUTO 0.1 K/mm3 (0.0-0.2); BASOPHILS PERCENT AUTO 0.9 % (0.0-1.0); EOSINOPHILS ABSOLUTE AUTO 0.2 K/mm3 (0.0-0.4); EOSINOPHILS PERCENT AUTO 3.3 % (0.0-6.0); HEMATOCRIT 39.4 % (37.0-47.0); HEMOGLOBIN 13.6 gm/dl (12.0-16.0); IMMATURE GRAN ABSOLUTE AUTO 0.02 K/mm3 (0.00-0.05); IMMATURE GRAN PERCENT AUTO 0.3 % (0.0-0.4); LYMPHOCYTES ABSOLUTE AUTO 0.9 K/mm3 (1.0-4.8); MEAN CORPUSCULAR HEMOGLOBIN 30.6 pg (28.0-32.0); MEAN CORPUSCULAR HGB CONC 34.5 g/dl (32.0-36.0); MEAN CORPUSCULAR VOLUME 88.5 fl (83.0-99.0); MEAN PLATELET VOLUME 11.2 fl (9.4-12.3); MONOCYTES ABSOLUTE AUTO 0.4 K/mm3 (0.0-0.8); MONOCYTES PERCENT AUTO 5.5 % (0.0-8.0); PLATELET COUNT,PLT 198 K/mm3 (150-400); RED BLOOD CELL COUNT 4.45 M/mm3 (4.10-5.30); WHITE BLOOD CELL COUNT,WBC 6.59 K/mm3 (3.9-11.3)
[2023-09-29] MEDS: Sodium Chloride 0.9% 1,000 ML IV SCH (11:13)
[2023-09-29 11:27] LABS: A/G RATIO 1.1 (1-2); ANION GAP 13.2 (5-15); BILIRUBIN TOTAL 0.3 mg/dL (0.2-1.0); BUN/CREATININE RATIO 11.8 (14-18); CALCIUM 9.3 mg/dL (8.5-10.1); CREATININE 1.1 mg/dL (0.55-1.02); EST CRCL DRUG DOSING (CG) 51.08 mL/min; MAGNESIUM 1.8 mg/dL (1.8-2.4); PROTEIN TOTAL,TP 7.5 g/dl (6.4-8.2)
[2023-09-29 11:47] LABS: POTASSIUM,K 4.2 mEq/L (3.5-5.1)
[2023-09-29 12:24] LABS: APPEARANCE,URINE CLEAR (Clear); BILIRUBIN,URINE NEGATIVE (Negative); COLOR,URINE LIGHT YELLOW (Yellow); GLUCOSE,URINE NEGATIVE (Negative); KETONES,URINE NEGATIVE (Negative); LEUKOCYTE ESTERASE,URINE NEGATIVE (Negative); NITRITE,URINE NEGATIVE (Negative); OCCULT BLOOD,URINE NEGATIVE (Negative); PROTEIN,URINE NEGATIVE (Negative); UROBILINOGEN,URINE 0.2 (0.2-1.0)
[2023-09-29] MEDS: Meclizine 25 MG Tab PO ONE (13:12)
[2023-09-29 19:33] VITALS: BP 126/64; PULSE 67
== END 2023-09-29 13:13 | disposition home or self-care (01) ==
LOC: JD.ED 10:22
DX: R42 Dizziness and giddiness (principal); I10 Essential (primary) hypertension; E03.9 Hypothyroidism, unspecified; Z98.2 Presence of cerebrospinal fluid drainage device; Z79.899 Other long term (current) drug therapy
CPT/HCPCS: 36415; 70450; 71046; 80053; 81003; 83735; 84484; 84703; 85025; 93005; 96360; 99284; A9270; J7030; 93010

== ENCOUNTER 2023-09-30 10:22 | Emergency (ER) | payer MEDICARE, MEDICAID ==
[2023-09-30] MEDS: Sodium Chloride 0.9% 1,000 ML IV SCH (11:22)
[2023-09-30] MEDS: Meclizine 25 MG Tab PO ONE (11:23)
[2023-09-30] MEDS: Sodium Chloride 0.9% 10 ML Syringe FLUSH PRN ×2 (11:23→11:40)
[2023-09-30] MEDS: Ondansetron 4 MG/2 ML SDV IVPUSH ONE (11:23)
[2023-09-30 11:39] LABS: BASOPHILS ABSOLUTE AUTO 0.1 K/mm3 (0.0-0.2); BASOPHILS PERCENT AUTO 0.9 % (0.0-1.0); EOSINOPHILS ABSOLUTE AUTO 0.2 K/mm3 (0.0-0.4); EOSINOPHILS PERCENT AUTO 3.8 % (0.0-6.0); HEMATOCRIT 38.6 % (37.0-47.0); HEMOGLOBIN 13.2 gm/dl (12.0-16.0); IMMATURE GRAN ABSOLUTE AUTO 0.03 K/mm3 (0.00-0.05); IMMATURE GRAN PERCENT AUTO 0.5 % (0.0-0.4); LYMPHOCYTES ABSOLUTE AUTO 1.2 K/mm3 (1.0-4.8); LYMPHOCYTES PERCENT AUTO 18.2 % (24.0-44.0); MEAN CORPUSCULAR HEMOGLOBIN 30.1 pg (28.0-32.0); MEAN CORPUSCULAR HGB CONC 34.2 g/dl (32.0-36.0); MEAN CORPUSCULAR VOLUME 87.9 fl (83.0-99.0); MEAN PLATELET VOLUME 10.7 fl (9.4-12.3); MONOCYTES ABSOLUTE AUTO 0.3 K/mm3 (0.0-0.8); MONOCYTES PERCENT AUTO 5.4 % (0.0-8.0); NEUTROPHILS ABSOLUTE AUTO 4.5 K/mm3 (1.8-7.7); NEUTROPHILS PERCENT AUTO 71.2 % (41.0-71.0); PLATELET COUNT,PLT 169 K/mm3 (150-400); RED BLOOD CELL COUNT 4.39 M/mm3 (4.10-5.30); WHITE BLOOD CELL COUNT,WBC 6.33 K/mm3 (3.9-11.3)
[2023-09-30] MEDS: Sodium Chloride 0.9% 100 ML IV SCH (11:40)
[2023-09-30] MEDS: Iopamidol 755 Mg/ML 100 ML Bottle IVPUSH ONE (11:40)
[2023-09-30 12:02] LABS: A/G RATIO 1.2 (1-2); ALBUMIN 3.9 g/dl (3.4-5.0); BILIRUBIN TOTAL 0.4 mg/dL (0.2-1.0); BUN/CREATININE RATIO 9.1 (14-18); CREATININE 1.1 mg/dL (0.55-1.02); EST CRCL DRUG DOSING (CG) 51.08 mL/min; MAGNESIUM 1.6 mg/dL (1.8-2.4); PROTEIN TOTAL,TP 7.1 g/dl (6.4-8.2)
[2023-09-30 19:38] VITALS: BP 110/63; PULSE 78
== END 2023-09-30 14:39 | disposition home or self-care (01) ==
LOC: JD.ED 10:22
DX: R42 Dizziness and giddiness (principal); I10 Essential (primary) hypertension; E03.9 Hypothyroidism, unspecified; Z88.8 Allergy status to other drugs, medicaments and biological substances; Z79.890 Hormone replacement therapy; Z79.899 Other long term (current) drug therapy; Z86.16 Personal history of COVID-19
CPT/HCPCS: 36415; 70250; 70250-26; 70360; 70496; 70496-26; 70498; 70498-26; 71046; 74019; 80053; 83735; 85025; 96361; 96374; 99284; 99284-25; A9270-GY; J2405; J3490; J7030; Q9967

== ENCOUNTER 2024-04-18 08:52 | Emergency (ER) | payer MEDICARE, MEDICAID ==
[2024-04-18 09:42] LABS: BASOPHILS ABSOLUTE AUTO 0.1 K/mm3 (0.0-0.2); BASOPHILS PERCENT AUTO 0.7 % (0.0-1.0); EOSINOPHILS ABSOLUTE AUTO 0.2 K/mm3 (0.0-0.4); EOSINOPHILS PERCENT AUTO 3.1 % (0.0-6.0); HEMOGLOBIN 13.5 gm/dl (12.0-16.0); IMMATURE GRAN ABSOLUTE AUTO 0.02 K/mm3 (0.00-0.05); IMMATURE GRAN PERCENT AUTO 0.3 % (0.0-0.4); LYMPHOCYTES PERCENT AUTO 13.4 % (24.0-44.0); MEAN CORPUSCULAR HEMOGLOBIN 30.8 pg (28.0-32.0); MEAN CORPUSCULAR HGB CONC 33.8 g/dl (32.0-36.0); MEAN CORPUSCULAR VOLUME 91.1 fl (83.0-99.0); MEAN PLATELET VOLUME 11.6 fl (9.4-12.3); MONOCYTES ABSOLUTE AUTO 0.5 K/mm3 (0.0-0.8); MONOCYTES PERCENT AUTO 7.3 % (0.0-8.0); NEUTROPHILS ABSOLUTE AUTO 5.4 K/mm3 (1.8-7.7); NEUTROPHILS PERCENT AUTO 75.2 % (41.0-71.0); PLATELET COUNT,PLT 146 K/mm3 (150-400); RED BLOOD CELL COUNT 4.39 M/mm3 (4.10-5.30); WHITE BLOOD CELL COUNT,WBC 7.16 K/mm3 (3.9-11.3)
[2024-04-18] MEDS: Sodium Chloride 0.9% 1,000 ML IV ONE (09:42)
[2024-04-18 10:00] LABS: A/G RATIO 1.1 (1-2); ANION GAP 10.8 (5-15); BILIRUBIN TOTAL 0.4 mg/dL (0.2-1.0); CALCIUM 8.9 mg/dL (8.5-10.1); CREATININE 1.2 mg/dL (0.55-1.02); EST CRCL DRUG DOSING (CG) 46.33 mL/min; MAGNESIUM 1.9 mg/dL (1.8-2.4); POTASSIUM,K 3.8 mEq/L (3.5-5.1); PROTEIN TOTAL,TP 7.5 g/dl (6.4-8.2)
[2024-04-18 11:01] LABS: APPEARANCE,URINE CLEAR (Clear); BILIRUBIN,URINE NEGATIVE (Negative); COLOR,URINE YELLOW (Yellow); GLUCOSE,URINE NEGATIVE (Negative); KETONES,URINE NEGATIVE (Negative); LEUKOCYTE ESTERASE,URINE NEGATIVE (Negative); NITRITE,URINE NEGATIVE (Negative); OCCULT BLOOD,URINE NEGATIVE (Negative); PH,URINE 6.5 (5.0-8.0); PROTEIN,URINE NEGATIVE (Negative); UROBILINOGEN,URINE 0.2 (0.2-1.0)
[2024-04-18] MEDS: Sodium Chloride 0.9% 500 ML IV ONE (11:13)
[2024-04-18 16:29] VITALS: BP 138/84; PULSE 76
[2024-04-18 19:02] LABS: RBC,URINE 0-5 /hpf (0-5); SQUAMOUS EPITHELIAL CELLS,UR 0-5 /hpf (0-5); WBC,URINE 0-5 /hpf (0-5)
[2024-04-18 19:03] LABS: BACTERIA,URINE FEW /hpf (FEW); MUCUS,URINE NOT SEEN /hpf (FEW)
== END 2024-04-18 16:27 | disposition home or self-care (01) ==
LOC: JD.ED 08:52
DX: R19.7 Diarrhea, unspecified (principal); R42 Dizziness and giddiness; T47.4X5A Adverse effect of other laxatives, initial encounter; N83.209 Unspecified ovarian cyst, unspecified side; I10 Essential (primary) hypertension; E03.9 Hypothyroidism, unspecified; Z86.16 Personal history of COVID-19; Z79.899 Other long term (current) drug therapy; Z88.8 Allergy status to other drugs, medicaments and biological substances
CPT/HCPCS: 36415; 80053; 81001; 82550; 83735; 84484; 85025; 96360; 96361; 99284; J7030

== ENCOUNTER 2024-04-27 14:01 | Emergency (ER) | payer MEDICARE, MEDICAID ==
[2024-04-27] MEDS: Sodium Chloride 0.9% 1,000 ML IV STA (15:06)
[2024-04-27] MEDS: Sodium Chloride 0.9% 10 ML Syringe FLUSH PRN (15:10)
[2024-04-27 15:12] LABS: BASOPHILS PERCENT AUTO 0.5 % (0.0-1.0); EOSINOPHILS ABSOLUTE AUTO 0.2 K/mm3 (0.0-0.4); EOSINOPHILS PERCENT AUTO 2.9 % (0.0-6.0); HEMATOCRIT 42.1 % (37.0-47.0); HEMOGLOBIN 14.5 gm/dl (12.0-16.0); IMMATURE GRAN ABSOLUTE AUTO 0.02 K/mm3 (0.00-0.05); IMMATURE GRAN PERCENT AUTO 0.3 % (0.0-0.4); LYMPHOCYTES ABSOLUTE AUTO 0.9 K/mm3 (1.0-4.8); LYMPHOCYTES PERCENT AUTO 11.6 % (24.0-44.0); MEAN CORPUSCULAR HEMOGLOBIN 30.8 pg (28.0-32.0); MEAN CORPUSCULAR HGB CONC 34.4 g/dl (32.0-36.0); MEAN CORPUSCULAR VOLUME 89.4 fl (83.0-99.0); MEAN PLATELET VOLUME 10.9 fl (9.4-12.3); MONOCYTES ABSOLUTE AUTO 0.5 K/mm3 (0.0-0.8); MONOCYTES PERCENT AUTO 6.8 % (0.0-8.0); NEUTROPHILS ABSOLUTE AUTO 5.9 K/mm3 (1.8-7.7); NEUTROPHILS PERCENT AUTO 77.9 % (41.0-71.0); PLATELET COUNT,PLT 156 K/mm3 (150-400); RED BLOOD CELL COUNT 4.71 M/mm3 (4.10-5.30)
[2024-04-27 15:45] LABS: A/G RATIO 1.2 (1-2); ALBUMIN 4.1 g/dl (3.4-5.0); ANION GAP 15.6 (5-15); BILIRUBIN TOTAL 0.5 mg/dL (0.2-1.0); BUN/CREATININE RATIO 11.7 (14-18); CALCIUM 9.1 mg/dL (8.5-10.1); CREATININE 1.2 mg/dL (0.55-1.02); EST CRCL DRUG DOSING (CG) 46.33 mL/min; POTASSIUM,K 3.6 mEq/L (3.5-5.1); PROTEIN TOTAL,TP 7.6 g/dl (6.4-8.2)
[2024-04-27 16:35] VITALS: BP 131/58; PULSE 70
== END 2024-04-27 16:16 | disposition home or self-care (01) ==
LOC: JD.ED 14:01
DX: R42 Dizziness and giddiness (principal); I10 Essential (primary) hypertension; E03.9 Hypothyroidism, unspecified; Z86.16 Personal history of COVID-19; Z79.899 Other long term (current) drug therapy; Z79.890 Hormone replacement therapy; Z88.8 Allergy status to other drugs, medicaments and biological substances
CPT/HCPCS: 36415; 80053; 85025; 96360; 99284; J7030

== ENCOUNTER 2025-04-06 11:35 | Emergency (ER) | payer MEDICARE, MEDICAID ==
[2025-04-06 12:34] LABS: BASOPHILS ABSOLUTE AUTO 0.0 K/mm3 (0.0-0.2); BASOPHILS PERCENT AUTO 0.5 % (0.0-1.0); EOSINOPHILS ABSOLUTE AUTO 0.8 K/mm3 (0.0-0.4); EOSINOPHILS PERCENT AUTO 10.0 % (0.0-6.0); IMMATURE GRAN ABSOLUTE AUTO 0.03 K/mm3 (0.00-0.05); IMMATURE GRAN PERCENT AUTO 0.4 % (0.0-0.4); LYMPHOCYTES ABSOLUTE AUTO 0.9 K/mm3 (1.0-4.8); LYMPHOCYTES PERCENT AUTO 11.9 % (24.0-44.0); MEAN PLATELET VOLUME 10.6 fl (9.4-12.3); MONOCYTES ABSOLUTE AUTO 0.4 K/mm3 (0.0-0.8); MONOCYTES PERCENT AUTO 5.2 % (0.0-8.0); NEUTROPHILS ABSOLUTE AUTO 5.7 K/mm3 (1.8-7.7); NEUTROPHILS PERCENT AUTO 72.0 % (41.0-71.0); NRBC ABSOLUTE 0.00 (0.00-0.02); NRBC PERCENT 0.0 % (0.0-0.2); PLATELET COUNT,PLT 172 K/mm3 (150-400); RED BLOOD CELL COUNT 4.50 M/mm3 (4.10-5.30); WHITE BLOOD CELL COUNT,WBC 7.89 K/mm3 (3.9-11.3)
[2025-04-06 13:00] LABS: A/G RATIO 1.1 (1-2); ALANINE AMINOTRANSFERASE,ALT 45 U/L (14-59); ASPARTATE AMNIOTRANSFERASE,AST 27 U/L (15-37); BILIRUBIN TOTAL 0.4 mg/dL (0.2-1.0); BLOOD UREA NITROGEN,BUN 20 mg/dL (7-18); CARBON DIOXIDE,CO2 23 mEq/L (21-32); CHLORIDE,CL 106 mEq/L (98-107); CREATININE 1.0 mg/dL (0.55-1.02); ESTIMATED GFR 70 mL/min (>60); GLUCOSE RANDOM 137 mg/dL (70-99); POTASSIUM,K 3.8 mEq/L (3.5-5.1); PROTEIN TOTAL,TP 7.6 g/dl (6.4-8.2); SODIUM,NA 141 mEq/L (136-145); TROPONIN I HIGH SENSITIVITY 7 pg/mL (<=51)
[2025-04-06 16:07] VITALS: BP 135/79; PULSE 70
== END 2025-04-06 14:32 | disposition home or self-care (01) ==
LOC: JD.ED 11:35
DX: J40 Bronchitis, not specified as acute or chronic (principal); I10 Essential (primary) hypertension; E03.9 Hypothyroidism, unspecified; Z86.16 Personal history of COVID-19; Z88.8 Allergy status to other drugs, medicaments and biological substances; Z79.899 Other long term (current) drug therapy
CPT/HCPCS: 36415; 71045; 80053; 83880; 84484; 85025; 93005; 99285; J7030